=== PATIENT | male | born 1985 | race Caucasian/White ===

== ENCOUNTER 2020-01-02 02:03 | Day surgery (SDC) | payer OTHER, SELFPAY ==
[2019-12-31 15:15] VITALS: BMI 29.0
[2020-01-02 10:54] VITALS: BP 135/90; PULSE 93; RESP 16; TEMP 36.5; O2SAT 98; BMI 27.2
[2020-01-02] MEDS: LACTATED RINGERS 1,000 ML 150 ML IV CONT (11:11)
--- NOTE | 2020-01-02 11:25 | WPDANESEPPF ---
Anes - Initial Pre Proc Eval Procedure: Operation Date: 01/02/20 12:00 Proposed Procedures p Colonoscopy - Familia Koroma MD Date/Time: 01/02/20 11:25 Surgeon: Familia Koroma MD Pre Op Diagnosis: Ulcerative Colitis Patient Data Age: 34 Gender: M Height: 6 ft 1 in Weight: 93.6 kg Last Vital Signs Temp 97.7 F 01/02/20 10:54 Pulse 93 01/02/20 10:54 Resp 16 01/02/20 10:54 BP 135/90 01/02/20 10:54 Pulse Ox 98 01/02/20 10:54 Allergies Allergy/AdvReac Type Severity Reaction Status Date / Time No Known Allergies Allergy Verified 01/02/20 10:53 Home Medications Medication Instructions Recorded Confirmed Type No Home Medications 12/31/19 12/31/19 History Patient hx anesthesia problems: none Family hx anesthesia problems: none PMFSH Past Medical History Medical History (Updated 01/02/20 @ 11:25 by Alberto Burt MD) Asthma Ulcerative colitis Social History Social History (Updated 01/02/20 @ 11:29 by Alberto Burt MD) Smoking packs per day: 1.5 Smoking cigarettes per day: 30.0 Years smoked: 21 Smoking pack-years: 31.50 Smoking status: Current every day smoker Alcohol intake: current Anes - Eval Final PreProcedure Day of Procedure 01/02/20 11:25 Patient weight: normal Heart: regular rate and rhythm Lungs: clear to auscultation Airway: Mallampati scale class II Neurological: alert and oriented Last oral intake: >/= 8 hours ASA classification: II Emergent: no Anesthetic plan: proceed Anesthesia type and monitoring: general GIVS and standard monitoring Informed Consent: The patient's anesthetic plan and its attendant risks and benefits were discussed with the patient/family/POA. Questions were solicited and answers provided to the satisfaction of the patient/family/POA.
--- NOTE | 2020-01-02 11:58 | P.HP_ITS ---
History of Present Illness History of Present Illness Consent: Risks, benefits, and alternatives have been discussed and questions answered. Patient agrees to proceed with procedure. Chief complaint: Ulcerative Colitis Narrative: Parth Mccartney is a 34 year old male With known ulcerative colitis. He had not taken medication for at least 6 months and is now having cramping diarrhea and abdominal pain. [facility] Past Medical History Medical History Asthma Ulcerative colitis Social History Social History Smoking packs per day: 1.5 Smoking cigarettes per day: 30.0 Years smoked: 21 Smoking pack-years: 31.50 Smoking status: Current every day smoker Alcohol intake: current Meds Home Medications and Allergies Home Medications Medication Instructions Recorded Confirmed Type No Home Medications 12/31/19 12/31/19 History Allergies Allergy/AdvReac Type Severity Reaction Status Date / Time No Known Allergies Allergy Verified 01/02/20 10:53 Vital Signs Vital Signs - 24 hr 01/02/20 10:54 Temperature 36.5 C Pulse Rate 93 Respiratory Rate 16 Blood Pressure 135/90 Pulse Oximetry 98 Exam Resp: Auscultation: clear to auscultation bilaterally Cardio: Rate: regular rate Rhythm: regular rhythm GI: GI Palp: Yes Soft to palpation and No Tenderness to palpation present (GI) Assessment and Plan Assessment and plan (1) Ulcerative colitis: Code(s): K51.90 - Ulcerative colitis, unspecified, without complications Status: Acute Assessment and Plan: Colonoscopy with possible biopsy or polypectomy or cautery or injection of substances.
[2020-01-02 12:14] VITALS: BP 104/70; PULSE 82; RESP 20; O2SAT 94
[2020-01-02 12:24] VITALS: BP 109/71; PULSE 83; RESP 20; O2SAT 94
[2020-01-02 12:34] VITALS: BP 129/74; PULSE 81; RESP 18; O2SAT 100
== END 2020-01-02 12:49 | disposition home or self-care (01) ==
PROVIDERS: PCP Nurse Practitioner Family; Visit Provider Internal Medicine Gastroenterology
PROC: 0DJD8ZZ Inspection of Lower Intestinal Tract, Via Natural or Artificial Opening Endoscopic (ICD-10-PCS; CPT 45378; principal; 2020-01-02 12:00)
DX: K51.00 Ulcerative (chronic) pancolitis without complications (principal); J45.909 Unspecified asthma, uncomplicated; F17.210 Nicotine dependence, cigarettes, uncomplicated
CPT/HCPCS: 45380; 88305; J2704; J7120

== ENCOUNTER 2021-10-27 12:02 | Outpatient (CLI) | payer OTHER, SELFPAY ==
[2021-10-27 12:40] LABS: Hematocrit 39.1 % (42.0-52.0); Hemoglobin 12.1 g/dL (14.0-18.0); Mean Corpuscular HGB Conc 30.9 g/dl (32-36); Mean Corpuscular Volume 96.8 fl (80-100); Mean Platelet Volume 8.9 fl (7.4-10.4); Platelet Count Result 554 k/mm3 (150-375); Red Blood Count 4.04 M/mm3 (4.6-6.20); Red Cell Distribution Width 13.9 % (11.5-14.5); White Blood Count 7.6 K/mm3 (4.5-10.0)
[2021-10-27 12:58] LABS: Alanine Aminotransferase 13 U/L (4-50); Albumin Level 4.3 g/dL (3.5-5.1); Alkaline Phosphatase 131 U/L (38-126); Anion Gap 9 mmol/L (8-16); Aspartate Amino Transferase 18 U/L (17-59); Bilirubin,Total 0.3 mg/dL (0.2-1.3); Blood Urea Nitrogen 12 mg/dL (9-20); CRP 3.2 mg/dL (<1.0); Carbon Dioxide 30 mmol/L (22-30); Chloride 103 mmol/L (98-107); Estimated Glomerular Filt Rate > 60; Glucose 90 mg/dL (65-110); Potassium 4.5 mmol/L (3.4-5.0); Sodium 142 mmol/L (137-145)
[2021-10-27 15:56] LABS: Erythrocyte Sedimentation Rate 51 mm/hr (0-20)
[2021-10-28 01:30] LABS: Hepatitis B Surface Antigen Negative (Negative)
[2021-10-28 02:00] LABS: Hepatitis B Surface Anti Res Positive
[2021-10-31 12:56] LABS: NIL 0.02 IU/mL; Quantiferon TB Plus, 1T NEGATIVE (NEGATIVE)
[2021-10-31 19:41] LABS: Hepatitis B Core Ab Total Nonreactive (Nonreactive)
[2021-11-03 14:36] LABS: Hepatitis C RNA, Quant PCR <15 IU/mL
[2021-11-04 18:27] LABS: HIV 1 RNA PCR <1.30 Log cps/mL; HIV 1 RNA PCR <20 Copies/mL
== END 2021-10-27 12:03 | disposition home or self-care (01) ==
PROVIDERS: PCP Nurse Practitioner Family; Visit Provider Nurse Practitioner Family
DX: K51.90 Ulcerative colitis, unspecified, without complications (principal)
CPT/HCPCS: 36415; 80053; 85027; 85652; 86140; 86480; 86704; 86706; 87340; 87522; 87536

== ENCOUNTER 2021-11-09 01:09 | Day surgery (SDC) | payer OTHER, SELFPAY ==
[2021-11-01 11:07] VITALS: BMI 27.8
--- NOTE | 2021-11-09 06:53 | PM.HPGS ---
History of Present Illness History of Present Illness Consent: Risks, benefits, and alternatives have been discussed and questions answered. Patient agrees to proceed with procedure. Chief complaint: ulcerative colitis Narrative: Michael Mccartney is a 36 year old male With history of ulcerative colitis since 2013. At the time of his last examination 1 year ago he was found have severe diffuse colitis throughout the colon. Biopsies confirmed that but fortunately there was no dysplasia. He has stated that he has had a difficult time remembering to take all of his medication, mesalamine 3 capsules 3 times a day. In the past he had been on Humira. Review of Systems Review of Systems: All systems reviewed & are unremarkable except as noted in HPI and below PMFSH Past Medical History Medical History Asthma Ulcerative colitis Social History Social History Smoking packs per day: 1 Smoking cigarettes per day: 20.0 Years smoked: 20 Smoking pack-years: 20.00 Smoking status: Former smoker Tobacco type: cigarettes Alcohol intake: current Alcohol use details: social Substance use: never Last use: 07/2021 Living arrangements: with family Spiritual care concerns: No Meds Home Medications and Allergies Home Medications Medication Instructions Recorded Confirmed Type balsalazide 750 mg capsule 2,250 mg PO TID #270 cap 10/27/21 11/01/21 Rx Allergies Allergy/AdvReac Type Severity Reaction Status Date / Time No Known Allergies Allergy Verified 11/01/21 11:05 Exam Resp: Auscultation: clear to auscultation bilaterally Cardio: Rate: regular rate Rhythm: regular rhythm GI: GI Palp: Yes Soft to palpation and No Tenderness to palpation present (GI) Assessment and Plan Assessment and plan (1) Ulcerative colitis: Code(s): K51.90 - Ulcerative colitis, unspecified, without complications Status: Acute Assessment and Plan: Colonoscopy with possible biopsy or polypectomy or cautery or injection of substances.
--- NOTE | 2021-11-09 07:01 | WPDANESEPPF ---
Anes - Initial Pre Proc Eval Procedure: Operation Date: 11/09/21 09:30 Proposed Procedures p Colonoscopy - Familia Koroma MD Date/Time: 11/09/21 07:01 Surgeon: Familia Koroma MD Pre Op Diagnosis: ulcerative colitis Patient Data Age: 36 Gender: M Height: 1.83 m Weight: 93 kg Allergies Allergy/AdvReac Type Severity Reaction Status Date / Time No Known Allergies Allergy Verified 11/09/21 08:51 Home Medications Medication Instructions Recorded Confirmed Type balsalazide 750 mg capsule 2,250 mg PO TID #270 cap 10/27/21 11/01/21 Rx Patient hx anesthesia problems: none Family hx anesthesia problems: none Results Review: All pre-operative results and documents have been reviewed as part of the pre-operative evaluation. [facility] Past Medical History Medical History Asthma Ulcerative colitis Social History Social History Smoking packs per day: 1 Smoking cigarettes per day: 20.0 Years smoked: 20 Smoking pack-years: 20.00 Smoking status: Former smoker Tobacco type: cigarettes Alcohol intake: current Alcohol use details: social Substance use: never Last use: 07/2021 Living arrangements: with family Spiritual care concerns: No Anes - Eval Final PreProcedure Day of Procedure 11/09/21 07:01 Patient weight: overweight Heart: regular rate and rhythm Lungs: clear to auscultation and normal air movement Airway: Mallampati scale class II Neurological: alert and oriented Last oral intake: >/= 8 hours ASA classification: III Emergent: no Anesthetic plan: proceed Anesthesia type and monitoring: general GIVS and standard monitoring Results Review: All pre-operative results and documents have been reviewed as part of the pre-operative evaluation. Informed Consent: The patient's anesthetic plan and its attendant risks and benefits were discussed with the patient/family/POA. Questions were solicited and answers provided to the satisfaction of the patient/family/POA.
[2021-11-09 08:52] VITALS: BP 108/78; PULSE 74; RESP 18; TEMP 36.4; O2SAT 100; BMI 27.1
[2021-11-09] MEDS: LACTATED RINGERS 1,000 ML 150 ML IV CONT (09:04)
[2021-11-09 10:26] VITALS: BP 99/67; PULSE 74; RESP 18; O2SAT 97
[2021-11-09 10:36] VITALS: BP 104/76; PULSE 62; RESP 21; O2SAT 100
[2021-11-09 10:46] VITALS: BP 121/81; PULSE 62; RESP 20; O2SAT 100
== END 2021-11-09 10:52 | disposition home or self-care (01) ==
PROVIDERS: PCP Nurse Practitioner Family; Visit Provider Internal Medicine Gastroenterology
PROC: 0DJD8ZZ Inspection of Lower Intestinal Tract, Via Natural or Artificial Opening Endoscopic (ICD-10-PCS; CPT 45378; principal; 2021-11-09 09:30)
DX: K51.00 Ulcerative (chronic) pancolitis without complications (principal); K51.50 Left sided colitis without complications; K51.90 Ulcerative colitis, unspecified, without complications; K62.89 Other specified diseases of anus and rectum; Z87.891 Personal history of nicotine dependence
CPT/HCPCS: 45380; 88305; J2001; J2704; J7120

== ENCOUNTER 2022-04-27 01:00 | Day surgery (SDC) | payer OTHER, SELFPAY ==
[2022-04-19 10:28] VITALS: BMI 31.2
--- NOTE | 2022-04-26 14:08 | PM.HPGS ---
History of Present Illness History of Present Illness Consent: Risks, benefits, and alternatives have been discussed and questions answered. Patient agrees to proceed with procedure. Chief complaint: ulcerative colitis Narrative: Michael Mccartney is a 36 year old male Who was found to have severe diffuse ulcerative colitis several months ago with biopsies being indefinite for dysplasia. He has not been able to get on a biologic product as was turned down by his insurance company. He is currently taking balsalazide and has had a few courses of steroids, currently finishing a taper of prednisone. Review of Systems Review of Systems: All systems reviewed & are unremarkable except as noted in HPI and below PMFSH Past Medical History Medical History Asthma Ulcerative colitis Social History Social History Smoking packs per day: 1 Smoking cigarettes per day: 20.0 Years smoked: 20 Smoking pack-years: 20.00 Smoking status: Current every day smoker Tobacco type: cigarettes Alcohol intake: current Alcohol use details: occasional use Substance use: never Substance use type: does not use Last use: 07/2021 Living arrangements: with friend(s) Spiritual care concerns: No Meds Home Medications and Allergies Home Medications Medication Instructions Recorded Confirmed Type balsalazide 750 mg capsule See Rx Instructions .Route 11/14/21 04/19/22 Rx .COMPLEX #270 caps prednisone 10 mg tablet 30 mg PO DAILY #90 tabs 04/17/22 04/19/22 Rx ergocalciferol (vitamin D2) 1,250 1 cap PO DAILY 04/19/22 04/19/22 History mcg (50,000 unit) capsule Allergies Allergy/AdvReac Type Severity Reaction Status Date / Time No Known Allergies Allergy Verified 04/27/22 12:04 Exam Const: General: alert Orientation/consciousness: patient oriented x3 Resp: Auscultation: clear to auscultation bilaterally Cardio: Rate: regular rate Rhythm: regular rhythm GI: GI Palp: Yes Soft to palpation and No Tenderness to palpation present (GI) Neuro: General: patient oriented x3 Assessment and Plan Assessment and plan (1) Ulcerative colitis: Code(s): K51.90 - Ulcerative colitis, unspecified, without complications Status: Acute Assessment and Plan: Colonoscopy with possible biopsy or polypectomy or cautery or injection of substances.
[2022-04-27 12:05] VITALS: BP 126/86; PULSE 102; RESP 18; TEMP 36.8; O2SAT 98
[2022-04-27] MEDS: LACTATED RINGERS 1,000 ML 150 ML IV CONT (12:06)
--- NOTE | 2022-04-27 12:13 | P.PNAN_ITS ---
Anes - Initial Pre Proc Eval Procedure: Operation Date: 04/27/22 12:45 Proposed Procedures p Colonoscopy - Familia Koroma MD Date/Time: 04/27/22 12:13 Surgeon: Familia Koroma MD Pre Op Diagnosis: ulcerative colitis Patient Data Age: 36 Gender: M Height: 1.83 m Weight: 93.9 kg Last Vital Signs Temp 98.2 F 04/27/22 12:05 Pulse 102 H 04/27/22 12:05 Resp 18 04/27/22 12:05 BP 126/86 04/27/22 12:05 Pulse Ox 98 04/27/22 12:05 O2 Del Method Room Air 04/27/22 12:05 Allergies Allergy/AdvReac Type Severity Reaction Status Date / Time No Known Allergies Allergy Verified 04/27/22 12:04 Home Medications Medication Instructions Recorded Confirmed Type balsalazide 750 mg capsule See Rx Instructions .Route 11/14/21 04/19/22 Rx .COMPLEX #270 caps prednisone 10 mg tablet 30 mg PO DAILY #90 tabs 04/17/22 04/19/22 Rx ergocalciferol (vitamin D2) 1,250 1 cap PO DAILY 04/19/22 04/19/22 History mcg (50,000 unit) capsule Patient hx anesthesia problems: none Family hx anesthesia problems: none Results Review: All pre-operative results and documents have been reviewed as part of the pre- operative evaluation. [facility] Past Medical History Medical History Asthma Ulcerative colitis Social History Social History Smoking packs per day: 1 Smoking cigarettes per day: 20.0 Years smoked: 20 Smoking pack-years: 20.00 Smoking status: Current every day smoker Tobacco type: cigarettes Alcohol intake: current Alcohol use details: occasional use Substance use: never Substance use type: does not use Last use: 07/2021 Living arrangements: with friend(s) Spiritual care concerns: No Anes - Eval Final PreProcedure Day of Procedure 04/27/22 12:13 Patient weight: overweight Heart: regular rate and rhythm Lungs: clear to auscultation Airway: Mallampati scale class II Neurological: alert and oriented Last oral intake: >/= 8 hours ASA classification: II Emergent: no Anesthetic plan: proceed Anesthesia type and monitoring: general GIVS and standard monitoring Results Review: All pre-operative results and documents have been reviewed as part of the pre- operative evaluation. Informed Consent: The patient's anesthetic plan and its attendant risks and benefits were di scussed with the patient/family/POA. Questions were solicited and answers provided to the satisfaction of the patient/family/POA.
[2022-04-27 12:39] VITALS: BP 106/64; PULSE 86; RESP 24; O2SAT 94
[2022-04-27 12:49] VITALS: BP 120/72; PULSE 88; RESP 26; O2SAT 98
[2022-04-27 12:59] VITALS: BP 119/76; PULSE 81; RESP 20; O2SAT 98
== END 2022-04-27 13:23 | disposition home or self-care (01) ==
PROVIDERS: PCP Nurse Practitioner Family; Visit Provider Internal Medicine Gastroenterology
PROC: 0DJD8ZZ Inspection of Lower Intestinal Tract, Via Natural or Artificial Opening Endoscopic (ICD-10-PCS; CPT 45378; principal; 2022-04-27 12:45)
DX: Z09 Encounter for follow-up examination after completed treatment for conditions other than malignant neoplasm (principal); K51.00 Ulcerative (chronic) pancolitis without complications; J45.909 Unspecified asthma, uncomplicated; F17.210 Nicotine dependence, cigarettes, uncomplicated; Z79.52 Long term (current) use of systemic steroids
CPT/HCPCS: 45380; 88305; J2704; J7120

== ENCOUNTER 2022-05-03 11:56 | Outpatient (CLI) | payer OTHER, SELFPAY ==
[2022-05-03 13:48] LABS: Toxigenic C. Diff NEGATIVE (NEGATIVE)
[2022-05-10 18:43] LABS: Calprotectin, Stool 7320 mcg/g
== END 2022-05-03 11:57 | disposition home or self-care (01) ==
PROVIDERS: PCP Nurse Practitioner Family; Visit Provider Nurse Practitioner Family
DX: K51.90 Ulcerative colitis, unspecified, without complications (principal)
CPT/HCPCS: 83993; 87045; 87177; 87209; 87427; 87493

== ENCOUNTER 2022-05-10 11:35 | Outpatient (CLI) | payer OTHER, SELFPAY ==
--- NOTE | 2022-05-10 12:17 | ECG_ITS ---
Measurements Intervals [place] Rate: 75 P: 59 SD: 165 QRS: 42 QRSD: 101 T: 31 QT: 376 QTc: 422 Interpretive Statements SINUS RHYTHM BASELINE WANDER- I, II, AVR NORMAL ECG Electronically Signed On 05-10-2022 22:33:36 CDT by Mahad Montiel D.O.
[2022-05-10 12:22] LABS: Basophils Percent Auto 0.2 % (0.2-1.2); Eosinophils Percent Auto 0.4 % (0-4.4); Hematocrit 39.2 % (42.0-52.0); Hemoglobin 12.7 g/dL (14.0-18.0); Immature Granulocyte Absolute 0.04 K/mm3 (0.00-0.031); Immature Granulocyte Percent A 0.4 % (0-0.5); Lymphocytes Absolute Auto 1.77 K/mm3 (0.9-3.2); Lymphocytes Percent Auto 18.8 % (18.3-44.2); Mean Corpuscular HGB Conc 32.4 g/dl (32-36); Mean Corpuscular Hemoglobin 29.6 pg (26-34); Mean Corpuscular Volume 91.4 fl (80-100); Mean Platelet Volume 9.6 fl (7.4-10.4); Monocytes Absolute Auto 0.8 K/mm3 (0.1-0.6); Monocytes Percent Auto 8.1 % (2.6-8.5); Neutrophils Absolute Auto 6.8 K/mm3 (1.3-6.7); Neutrophils Percent Auto 72.1 % (45.5-73.1); Platelet Count Result 452 k/mm3 (150-375); Red Blood Count 4.29 M/mm3 (4.6-6.20); White Blood Count 9.4 K/mm3 (4.5-10.0)
[2022-05-10 12:33] LABS: Alanine Aminotransferase 13 U/L (6-50); Albumin Level 3.9 g/dL (3.5-5.1); Alkaline Phosphatase 61 U/L (38-126); Aspartate Amino Transferase 15 U/L (17-59); Bilirubin,Total 0.4 mg/dL (0.2-1.3)
== END 2022-05-10 11:36 | disposition home or self-care (01) ==
LOC: ANHLAB 11:38
PROVIDERS: PCP Nurse Practitioner Family; Visit Provider Internal Medicine Gastroenterology
DX: K51.90 Ulcerative colitis, unspecified, without complications (principal)
CPT/HCPCS: 36415; 80076; 85025; 93005

== ENCOUNTER 2022-09-07 12:08 | Outpatient (CLI) | payer OTHER, SELFPAY ==
[2022-09-07 11:19] LABS: Hematocrit 38.5 % (42.0-52.0); Hemoglobin 11.6 g/dL (14.0-18.0); Mean Corpuscular HGB Conc 30.1 g/dl (32-36); Mean Corpuscular Hemoglobin 24.4 pg (26-34); Mean Corpuscular Volume 81.1 fl (80-100); Mean Platelet Volume 10.2 fl (7.4-10.4); Platelet Count Result 444 k/mm3 (150-375); Red Blood Count 4.75 M/mm3 (4.6-6.20); Red Cell Distribution Width 14.9 % (11.5-14.5); White Blood Count 6.1 K/mm3 (4.5-10.0)
[2022-09-07 11:36] LABS: Iron 25 ug/dL (49-181)
[2022-09-07 11:37] LABS: Alanine Aminotransferase 13 U/L (6-50); Albumin Level 4.2 g/dL (3.5-5.1); Alkaline Phosphatase 87 U/L (38-126); Anion Gap 10 mmol/L (8-16); Aspartate Amino Transferase 21 U/L (17-59); Bilirubin,Total 0.4 mg/dL (0.2-1.3); Blood Urea Nitrogen 11 mg/dL (9-20); CRP 1.5 mg/dL (<1.0); Calcium 8.8 mg/dL (8.4-10.2); Carbon Dioxide 30 mmol/L (22-30); Chloride 103 mmol/L (98-107); Estimated Glomerular Filt Rate > 60; Glucose 130 mg/dL (65-110); Potassium 3.9 mmol/L (3.4-5.0); Sodium 143 mmol/L (137-145)
[2022-09-07 11:46] LABS: Percent Iron Saturation 6 % (20-50)
[2022-09-07 11:58] LABS: Erythrocyte Sedimentation Rate 14 mm/hr (0-20)
[2022-09-07 12:09] LABS: Ferritin 5.62 ng/mL (17.9-464)
[2022-09-07 12:37] LABS: Folic Acid 7.7 ng/mL (2.76->20)
[2022-09-15 16:19] LABS: Calprotectin, Stool 981 mcg/g
== END 2022-09-07 12:09 | disposition home or self-care (01) ==
PROVIDERS: PCP Nurse Practitioner Family; Visit Provider Nurse Practitioner Family
DX: K51.90 Ulcerative colitis, unspecified, without complications (principal)
CPT/HCPCS: 36415; 80053; 82607; 82728; 82746; 83540; 83550; 83993; 85027; 85652; 86140

== ENCOUNTER 2022-12-08 10:17 | Outpatient (CLI) | payer OTHER, SELFPAY ==
[2022-12-08 11:24] LABS: Hematocrit 44.3 % (42.0-52.0); Hemoglobin 14.1 g/dL (14.0-18.0); Mean Corpuscular HGB Conc 31.8 g/dl (32-36); Mean Corpuscular Hemoglobin 27.8 pg (26-34); Mean Corpuscular Volume 87.2 fl (80-100); Mean Platelet Volume 10.5 fl (7.4-10.4); Platelet Count Result 422 k/mm3 (150-375); Red Blood Count 5.08 M/mm3 (4.6-6.20); Red Cell Distribution Width 17.1 % (11.5-14.5); White Blood Count 10.2 K/mm3 (4.5-10.0)
[2022-12-08 11:40] LABS: Iron 87 ug/dL (49-181)
[2022-12-08 11:46] LABS: Alanine Aminotransferase 13 U/L (6-50); Albumin Level 4.4 g/dL (3.5-5.1); Alkaline Phosphatase 83 U/L (38-126); Anion Gap 9 mmol/L (8-16); Aspartate Amino Transferase 21 U/L (17-59); Bilirubin,Total 0.4 mg/dL (0.2-1.3); Blood Urea Nitrogen 10 mg/dL (9-20); CRP 1.8 mg/dL (<1.0); Calcium 8.9 mg/dL (8.4-10.2); Carbon Dioxide 29 mmol/L (22-30); Chloride 104 mmol/L (98-107); Estimated Glomerular Filt Rate > 60; Glucose 104 mg/dL (65-110); Potassium 4.1 mmol/L (3.4-5.0); Sodium 142 mmol/L (137-145)
[2022-12-08 11:52] LABS: Percent Iron Saturation 21 % (20-50)
== END 2022-12-08 10:18 | disposition home or self-care (01) ==
LOC: ANHLAB 10:19
PROVIDERS: PCP Nurse Practitioner Family; Visit Provider Nurse Practitioner Family
DX: K51.90 Ulcerative colitis, unspecified, without complications (principal)
CPT/HCPCS: 36415; 80053; 82728; 83540; 83550; 85027; 86140

== ENCOUNTER 2022-12-28 14:36 | Outpatient (CLI) | payer OTHER, SELFPAY ==
[2022-12-28 14:11] LABS: CRP 1.2 mg/dL (<1.0)
[2022-12-28 14:32] LABS: Erythrocyte Sedimentation Rate 4 mm/hr (0-20)
[2022-12-28 16:00] LABS: Toxigenic C. Diff NEGATIVE (NEGATIVE)
[2023-01-08 01:17] LABS: Calprotectin, Stool 6230 mcg/g
== END 2022-12-28 14:37 | disposition home or self-care (01) ==
LOC: ANHLAB 14:36
PROVIDERS: PCP Nurse Practitioner Family; Visit Provider Nurse Practitioner Family
DX: K51.90 Ulcerative colitis, unspecified, without complications (principal)
CPT/HCPCS: 36415; 83993; 85652; 86140; 87493

== ENCOUNTER 2023-01-12 10:37 | Outpatient (CLI) | payer OTHER, SELFPAY ==
[2023-01-12 11:38] LABS: Iron 103 ug/dL (49-181)
[2023-01-12 11:49] LABS: Percent Iron Saturation 27 % (20-50)
[2023-01-12 12:03] LABS: Hepatitis B Surface Antigen Negative (Negative)
[2023-01-12 12:14] LABS: Ferritin 8.22 ng/mL (17.9-464)
[2023-01-12 12:25] LABS: Hepatitis B Surface Anti Res Positive
[2023-01-15 16:21] LABS: Hepatitis C RNA, Quant PCR <15 IU/mL
[2023-01-16 13:28] LABS: NIL 0.01 IU/mL; Quantiferon TB Plus, 1T NEGATIVE (NEGATIVE)
[2023-01-16 17:21] LABS: Hepatitis B Core Ab Total Nonreactive (Nonreactive)
== END 2023-01-12 10:38 | disposition home or self-care (01) ==
PROVIDERS: Nurse Practitioner; PCP Nurse Practitioner Family; Visit Provider Nurse Practitioner Family
DX: K51.90 Ulcerative colitis, unspecified, without complications (principal); Z11.59 Encounter for screening for other viral diseases; Z79.899 Other long term (current) drug therapy; E61.1 Iron deficiency
CPT/HCPCS: 36415; 82728; 83540; 83550; 86480; 86704; 86706; 87340; 87522

== ENCOUNTER 2023-04-13 13:34 | Outpatient (CLI) | payer OTHER, SELFPAY ==
[2023-04-13 13:52] LABS: Hematocrit 45.8 % (42.0-52.0); Hemoglobin 15.1 g/dL (14.0-18.0); Mean Corpuscular Volume 88.1 fl (80-100); Platelet Count Result 293 k/mm3 (150-375); Red Cell Distribution Width 13.7 % (11.5-14.5); White Blood Count 7.5 K/mm3 (4.5-10.0)
[2023-04-13 14:09] LABS: Alanine Aminotransferase 21 U/L (6-50); Albumin Level 4.3 g/dL (3.5-5.1); Alkaline Phosphatase 90 U/L (38-126); Anion Gap 6 mmol/L (8-16); Aspartate Amino Transferase 29 U/L (17-59); Bilirubin,Total 0.5 mg/dL (0.2-1.3); Blood Urea Nitrogen 14 mg/dL (9-20); CRP < 0.5 mg/dL (<1.0); Calcium 8.4 mg/dL (8.4-10.2); Carbon Dioxide 28 mmol/L (22-30); Chloride 107 mmol/L (98-107); Estimated Glomerular Filt Rate > 60; Glucose 81 mg/dL (65-110); Potassium 4.1 mmol/L (3.4-5.0); Sodium 141 mmol/L (137-145)
[2023-04-13 14:20] LABS: Iron 103 ug/dL (49-181)
[2023-04-13 14:23] LABS: Erythrocyte Sedimentation Rate 3 mm/hr (0-20)
[2023-04-13 14:29] LABS: Percent Iron Saturation 23 % (20-50)
[2023-04-13 14:55] LABS: Ferritin 8.88 ng/mL (17.9-464)
== END 2023-04-13 13:35 | disposition home or self-care (01) ==
PROVIDERS: PCP Nurse Practitioner Family; Visit Provider Nurse Practitioner Family
DX: E61.1 Iron deficiency (principal); K51.90 Ulcerative colitis, unspecified, without complications
CPT/HCPCS: 36415; 80053; 82728; 83540; 83550; 85027; 85652; 86140

== ENCOUNTER 2023-04-16 11:01 | Outpatient (CLI) | payer OTHER, SELFPAY ==
[2023-04-22 19:12] LABS: Calprotectin, Stool 99 mcg/g
== END 2023-04-16 11:02 | disposition home or self-care (01) ==
LOC: ANHLAB 11:02
PROVIDERS: PCP Nurse Practitioner Family; Visit Provider Nurse Practitioner Family
DX: K51.90 Ulcerative colitis, unspecified, without complications (principal); E61.1 Iron deficiency
CPT/HCPCS: 83993

== ENCOUNTER 2023-10-29 10:44 | Outpatient (CLI) | payer OTHER, SELFPAY ==
[2023-10-29 12:00] LABS: Iron 166 ug/dL (49-181)
[2023-10-29 12:09] LABS: Percent Iron Saturation 38 % (20-50)
== END 2023-10-29 10:45 | disposition home or self-care (01) ==
LOC: ANHLAB 10:45
PROVIDERS: PCP Nurse Practitioner Family; Visit Provider Nurse Practitioner Family
DX: E61.1 Iron deficiency (principal)
CPT/HCPCS: 36415; 82728; 83540; 83550

== ENCOUNTER 2023-11-14 16:02 | Outpatient (CLI) | payer OTHER, SELFPAY ==
[2023-11-14 17:37] LABS: Toxigenic C. Diff NEGATIVE (NEGATIVE)
[2023-11-22 18:08] LABS: Calprotectin, Stool 3990 mcg/g
== END 2023-11-14 16:03 | disposition home or self-care (01) ==
LOC: ANHLAB 16:03
PROVIDERS: PCP Nurse Practitioner Family; Visit Provider Nurse Practitioner Family
DX: R19.7 Diarrhea, unspecified (principal)
CPT/HCPCS: 83993; 87493

== ENCOUNTER 2024-04-28 14:07 | Outpatient (CLI) | payer OTHER, SELFPAY ==
[2024-04-28 14:39] LABS: Hematocrit 42.1 % (42.0-52.0); Hemoglobin 13.5 g/dL (14.0-18.0); Mean Corpuscular HGB Conc 32.1 g/dl (32-36); Mean Corpuscular Hemoglobin 26.6 pg (26-34); Mean Platelet Volume 11.4 fl (7.4-10.4); Platelet Count Result 328 k/mm3 (150-375); Red Blood Count 5.07 M/mm3 (4.6-6.20); Red Cell Distribution Width 14.8 % (11.5-14.5); White Blood Count 8.2 K/mm3 (4.5-10.0)
[2024-04-28 14:46] LABS: Alanine Aminotransferase 40 U/L (6-50); Albumin Level 4.6 g/dL (3.5-5.1); Alkaline Phosphatase 104 U/L (38-126); Anion Gap 11 mmol/L (4-12); Aspartate Amino Transferase 49 U/L (17-59); Bilirubin,Total 0.8 mg/dL (0.2-1.3); Blood Urea Nitrogen 16 mg/dL (9-20); CRP 1.3 mg/dL (<1.0); Carbon Dioxide 24 mmol/L (22-30); Chloride 105 mmol/L (98-107); Estimated Glomerular Filt Rate > 60; Glucose 86 mg/dL (65-110); Potassium 4.1 mmol/L (3.4-5.0); Sodium 140 mmol/L (137-145)
[2024-04-28 16:42] LABS: Erythrocyte Sedimentation Rate 6 mm/hr (0-20)
== END 2024-04-28 14:08 | disposition home or self-care (01) ==
LOC: ANHLAB 14:09
PROVIDERS: PCP Internal Medicine; Visit Provider Nurse Practitioner Family
DX: K51.90 Ulcerative colitis, unspecified, without complications (principal)
CPT/HCPCS: 36415; 80053; 85027; 85652; 86140

== ENCOUNTER 2024-05-06 14:36 | Outpatient (CLI) | payer OTHER, SELFPAY ==
[2024-05-11 23:34] LABS: Calprotectin, Stool 1150 mcg/g
== END 2024-05-06 14:37 | disposition home or self-care (01) ==
PROVIDERS: PCP Internal Medicine; Visit Provider Nurse Practitioner Family
DX: K51.90 Ulcerative colitis, unspecified, without complications (principal); R79.82 Elevated C-reactive protein (CRP)
CPT/HCPCS: 83993

== ENCOUNTER 2024-09-10 09:39 | Outpatient (CLI) | payer OTHER, SELFPAY ==
[2024-09-10 10:11] LABS: Cholesterol 173 mg/dL (0-200); HDL Direct 57 mg/dL; Triglycerides 109 mg/dL (<150)
[2024-09-10 10:22] LABS: LDL Cholesterol Direct 81 mg/dL
== END 2024-09-10 09:40 | disposition home or self-care (01) ==
PROVIDERS: PCP Internal Medicine; Visit Provider Nurse Practitioner Family
DX: K51.90 Ulcerative colitis, unspecified, without complications (principal)
CPT/HCPCS: 36415; 80061

== ENCOUNTER 2024-12-04 12:26 | Outpatient (CLI) | payer OTHER, SELFPAY ==
--- OUTSIDE RECORDS SUMMARY | 2024-12-04 12:28 | XMS_ITS | Patient Health Summary ---
Author Organization [facility] Address [address] [place] [address] Care Team Providers Care Framing Mill Supervisor Name Role Phone None, Physician Primary Care Provider Unavailabl e Note from [facility],non-owned Affiliates and Associated Physician Practices is amultiple site organization consisting of ambulatory clinics and hospital sitesin [place], [place], [place] and [place]. This disclosure is being madepursuant to the Care Everywhere program and may not contain all information available regarding this patient. Last updated 18.[facility] Allergies No known active allergies Medications * Be aware that medications may not be up to date on this document. Alwaysverify current medications with the patient. * balsalazide (Colazal) 750 MG capsule(Started 06/02/2023) TAKE 3 CAPSULES BY MOUTH 3 TIMES DAILY * buPROPion XL 24hr (Wellbutrin-XL) 300 MG tablet(Started 05/27/2023) Take 1 (one) tablet by mouth every morning * escitalopram (Lexapro) 10 MG tablet Take 1 (one) tablet by mouth once daily * omeprazole (PriLOSEC) 40 MG capsule Take 1 (one) capsule by mouth once daily * inFLIXimab-abda (Renflexis) injection(Started 03/09/2023) Renflexis 100 mg recon soln * predniSONE (Deltasone) 5 MG tablet Take 1 (one) tablet by mouth once * albuterol HFA (Proventil; Ventolin; Proair) 108 (90 Base) MCG/ACT inhaler INHALE 1 PUFF BY MOUTH EVERY 6 HOURS NEEDED FOR SHORTNESS OF BREATH OR WHEEZING Active Problems Problem Noted Date Diagnosed Date 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 Social History Tobacco Use Types Packs/Day Years Used Date Smoking Tobacco: Every Day Cigarettes Tobacco Cessation:Ready to Q uit: Yes; Counseling Given: Yes Alcohol Use Standard Drinks/Week Comments Never 0 (1 standard drink = 0.6 oz pur e alcohol) Sex and Gender Information Value Date Recorded Sex Assigned at Not on file Gender Identity Not on file Sexual Orientation Not on file Last Filed Vital Signs Vital Sign Reading Time Taken Comments Blood Pressure 128/85 06/05/2024 8:23 AM CDT Pulse 88 06/05/2024 8:23 AM CDT Temperature 36.8 C (98.2 F) 06/05/2024 8:23 AM CDT Respiratory Rate - - Oxygen Saturation 96% 06/05/2024 8:23 AM CDT Inhaled Oxygen Concentration - - Weight 108.2 kg (238 lb 9.6 oz) 06/05/2024 8:23 AM CDT Height 182.9 cm (6') 06/05/2024 8:23 AM CDT Body Mass Index 32.36 06/05/2024 8:23 AM CDT Procedures * CT HEAD WO CONTRAST(Performed 06/05/2024) Performed for Colloid cyst of brain (HCC) Results * CT HEAD WO CONTRAST (06/05/2024 8:10 AM CDT) Anatomical Region Laterality Modality Head Computed Tomogra phy 06/05/2024 2:09 PM CDT Impressions 06/05/2024 2:12 PM CDT IMPRESSION: 1. A 4 mm hyperattenuating lesion at the roof of the third ventricle/the foramen of Gipson, consistent with a colloid cyst. > Interpreting Provider: Julia Garces MD on 06/05/2024 2:12 PM Narrative 06/05/2024 2:12 PM CDT PROCEDURE: CT HEAD WO CONTRAST, DATE/TIME OF EXAM: 06/05/2024 8:11 AM, LOCATION [facility] INDICATION: Q04.6: Colloid cyst of brain (HCC) ADDITIONAL CLINICAL INFORMATION: Ordering Provider Reason For Exam: follow up colloid cyst Technologist Note: Additional: TECHNIQUE: CT of the head was performed without contrast according to standard protocol. CONTRAST: COMPARISON: No prior study is available for comparison at the time of this dictation. FINDINGS: A 4 mm hyperattenuating lesion at the roof of the third ventricle/the foramen of Gipson, consistent with a colloid cyst. No acute intracranial hemorrhage or intra- or extra-axial fluid collections are identified. The ventricles are of normal size, shape, and morphology. The basal cisterns are patent. No mass effect or midline shift is seen. The aly-white matter differentiation is normal. Other than mild paranasal sinus disease, the visualized portions of the orbits, paranasal sinuses, and mastoids appear normal. No acute calvarial fracture is identified. Procedure Note Julia Garces MD - 06/05/2024 PROCEDURE: CT HEAD WO CONTRAST, DATE/TIME OF EXAM: 06/05/2024 8:11 AM, LOCATION [facility] INDICATION: Q04.6: Colloid cyst of brain (HCC) ADDITIONAL CLINICAL INFORMATION: Ordering Provider Reason For Exam: follow up colloid cyst Technologist Note: Additional: TECHNIQUE: CT of the head was performed without contrast according to standard protocol. CONTRAST: COMPARISON: No prior study is available for comparison at the time ofthis dictation. FINDINGS: A 4 mm hyperattenuating lesion at the roof of the third ventricle/the foramen of Gipson, consistent with a colloid cyst. No acute intracranial hemorrhage or intra- or extra-axial fluidcollections are identified. The ventricles are of normal size, shape, andmorphology. The basal cisterns are patent. No mass effect or midline shift is seen.The aly-white matter differentiation is normal. Other than mild paranasal sinus disease, the visualized portions of the orbits, paranasal sinuses, and mastoids appear normal. No acute calvarial fracture is identified. IMPRESSION: 1. A 4 mm hyperattenuating lesion at the roof of the third ventricle/the foramen of Gipson, consistent with a colloid cyst. > Interpreting Provider: Julia Garces MD on 06/05/2024 2:12 PM Muna Rosario SENIOR CYBER INTELLIGENCE ANALYST-SOLE PAINTER CT ORDERABLES Care Teams Framing Mill Supervisor Relationship Specialty Start Date End Date None, Physician [address] [place] [address] PCP - General 06/07/23
--- OUTSIDE RECORDS SUMMARY | 2024-12-04 12:28 | XMS_ITS | Clinical Summary ---
Author Organization [email or web address] Address [address] [place] [address] Care Team Providers Care Medical Records Analyst Name Role Phone None, Physician Primary Care Provider Unavailabl e Source Comments [email or web address],non-owned Affiliates and Associated Physician Practices is amultiple site organization consisting of ambulatory clinics and hospital sitesin [place], [place], [place] and [place]. This disclosure is being madepursuant to the Care Everywhere program and may not contain all information available regarding this patient. Last updated 18.[email or web address] Allergies No known active allergies Medications * Be aware that medications may not be up to date on this document. Alwaysverify current medications with the patient. Medication Sig Dispensed Refills Start Date End Date Status balsalazide (Colazal) 750 MG capsule TAKE 3 CAPSULES BY MOUTH 3 TIMES DAILY 06/02/2023 Active buPROPion XL 24hr (Wellbutrin-XL) 300 MG tablet Take 1 (one) tablet by mouth every morning 05/27/2023 Active escitalopram (Lexapro) 10 MG tablet Take 1 (one) tablet by mouth once daily Active omeprazole (PriLOSEC) 40 MG capsule Take 1 (one) capsule by mouth once daily Active inFLIXimab-abda (Renflexis) injection Renflexis 100 mg recon soln 03/09/2023 Active predniSONE (Deltasone) 5 MG tablet Take 1 (one) tablet by mouth once Active albuterol HFA (Proventil; Ventolin; Proair) 108 (90 Base) MCG/ACT inhaler INHALE 1 PUFF BY MOUTH EVERY 6 HOURS NEEDED FOR SHORTNESS OF BREATH OR WHEEZING Active Active Problems Problem Noted Date Diagnosed Date [...] Mass Index 32.36 06/05/2024 8:23 AM CDT Plan of Treatment Health Maintenance Due Date Last Done Comments HIV SCREENING 2001 HEPATITIS C SCREENING 08/14/2004 DTAP/TDAP/TD VACCINES (1 - Tdap) 2005 HEPATITIS B VACCINE (1 of 3 - 19+ 3-dose series) 2005 PNEUMOCOCCAL VACCINE (1 of 2 - PCV) 2005 COVID-19 VACCINE (1 - 2023-2 5 season) 2024 INFLUENZA VACCINE (#1) 2024 3, 09/21/2022 DEPRESSION SCREENING 10/22/2024 ZOSTER VACCINE (1 of 2) 2036 HIB VACCINE Aged Out No longer eligi ble based on patient's age to complete this topic HPV VACCINE Aged Out No longer eligi ble based on patient's age to complete this topic MENINGOCOCCAL (Group B) VACCINE Aged Out No longer eligible b ased on patient's age to complete this topic MENINGOCOCCAL VACCINE Aged Out No brittney tova eligible based on patient's age to complete this topic Care Teams Medical Records Analyst Relationship Specialty Start Date End Date None, Physician [address] [place] [address] PCP - General 06/07/23
--- OUTSIDE RECORDS SUMMARY | 2024-12-04 12:28 | XMS_ITS | Referral Summary ---
Author Organization [facility] Address [address] [place] [address] Care Team Providers Care Jewel Stringer Name Role Phone None, Physician Primary Care Provider Unavailabl e Source Comments [facility],non-owned Affiliates and Associated Physician Practices is amultiple site organization consisting of ambulatory clinics and hospital sitesin [place], [place], [place] and [place]. This disclosure is being madepursuant to the Care Everywhere program and may not contain all information available regarding this patient. Last updated 18.[facility] Allergies No known active allergies Medications * [...] 06/05/2024 8:23 AM CDT Plan of Treatment Not on file Care Teams Jewel Stringer Relationship Specialty Start Date End Date None, Physician [address] [place] [address] PCP - General 06/07/23
--- OUTSIDE RECORDS SUMMARY | 2024-12-04 12:29 | XMS_ITS | Data Portability ---
Author Organization [place] - [facility], Main Office Address [address] [place] [address] Care Team Providers Care Lathe Puller Name Role Phone SELMA LAU Primary Care Provider [phone] [facility] GASTROENTEROLOGY Gastroen terologist Assessment Encounter Date Assessment Date Assessment LastModified by Organization Details LastModified Time 10/01/2023 10/01/2023 WEA- 02/26/23 Call office if worse, ER if life-threatening illness RTC in 3 months- he plans transfer to [facility] He voices understanding of plan and agrees [email or web address] Not available 10/01/2023 11:11:03 06/03/2024 06/03/2024 02/27/2024: Gluc 102, ALT/AST 56/72 TG 209 [email or web address] Not available 06/03/2024 15:03:47 10/07/2024 10/07/2024 02/27/2024: Gluc 102, ALT/AST 56/72 TG 209 09/10/2024: Lipids: Stable Not available 10/07/2024 12:04:55 12/02/2024 12/02/2024 02/27/2024: Gluc 102, ALT/AST 56/72 TG 209 09/10/2024: Lipids: Stable Not available 12/01/2024 14:24:32 Plan of Treatment Reminders Order Date Submit Date Provider Last Modified By Organization Details Last Modified Time Details Appointments Any 15 2024 03:45P Khoi gordon MD Not available Not available Not available Lab vitamin D, 25-hydrox y, total, serum 2024 025 [facility] (Lab), [address] [place], [address], 12/03/2024 10:15:31 lipid panel, serum 2024 025 [facility] (Lab), [address] [place], [address], 12/03/2024 10:15:31 CBC w/ auto diff 2024 025 [facility] (Lab), [address] [place], [address], 12/03/2024 10:15:31 TSH, serum or plasma 2024 025 [facility] (Lab), [address] [place], [address], 12/03/2024 10:15:31 CMP, serum or plasma 2024 025 [facility] (Lab), [address] [place], [address], 12/03/2024 10:15:31 vitamin B12 + folate, serum or blood 2024 025 [facility] (Lab), [address] [place], [address], 12/03/2024 10:15:31 vitamin D, 25-hydrox y, total, serum [address] (Lab), [address] [place], [address], 10/07/2024 12:04:03 lipid panel, serum [address] (Lab), [address] [place], [address], 10/07/2024 12:04:01 CBC w/ auto diff [address] (Lab), [address] [place], [address], 10/07/2024 12:04:02 TSH, serum or plasma [address] (Lab), [address] [place], [address], 10/07/2024 12:04:02 CMP, serum or plasma [address] (Lab), [address] [place], [address], 10/07/2024 12:04:02 vitamin B12 + folate, serum or blood [address] (Lab), [address] [place], [address], 10/07/2024 12:04:03 vitamin D, 25-hydrox y, total, serum [address] (Lab), [address] [place], [address], 07/31/2024 09:31:38 lipid panel, serum 2023 024 TIEN [facility] (Lab), [address] [place], [address], 09/10/2024 12:23:17 CBC w/ auto diff [address] (Lab), [address] [place], [address], 07/31/2024 09:30:59 TSH, serum or plasma [address] (Lab), [address] [place], [address], 07/31/2024 09:31:09 CMP, serum or plasma [address] (Lab), [address] [place], [address], 07/31/2024 09:31:18 vitamin B12 + folate, serum or blood [address] (Lab), [address] [place], [address], 07/31/2024 09:31:29 lipid panel, serum 2023 024 [facility] (Lab), [address] [place], [address], 02/27/2024 12:19:52 CBC w/ auto diff 2023 024 [facility] (Lab), [address] [place], [address], 02/27/2024 11:37:16 TSH, serum or plasma 2023 024 [facility] (Lab), [address] [place], [address], 02/27/2024 12:36:54 CMP, serum or plasma 2023 024 [facility] (Lab), [address] [place], [address], 02/27/2024 12:19:58 vitamin D, 25-hydrox y, total, serum [address] (Lab), [address] [place], [address], 03/04/2024 09:27:11 vitamin B12 + folate, serum or blood 2023 024 [email or web address] [facility] (Lab), [address] [place], [address], 03/04/2024 09:27:11 vitamin D, 25-hydrox y, total, serum 2022 023 [email or web address] [facility] (Lab), [address] [place], [address], 10/29/2023 15:48:13 CMP, serum or plasma 2022 023 [facility] (Lab), [address] [place], [address], 10/01/2023 12:49:29 CBC w/ auto diff 2022 023 [facility] (Lab), [address] [place], [address], 10/01/2023 13:23:55 glycohemo globin, total, blood 2022 023 [facility] (Lab), [address] [place], [address], 10/01/2023 18:36:59 lipid panel, serum 2022 023 [facility] (Lab), [address] [place], [address], 10/01/2023 12:49:34 TSH, serum or plasma 2022 023 [facility] (Lab), [address] [place], [address], 10/01/2023 13:53:16 Referral gastroent erologist referral - Please call patient to schedule an appointme nt. Thank you. 2024 025 leslie Zapata MD, [address] [facility], [facility] [address], [place], [address], 12/03/2024 14:08:14 cardiolog ist referral - Please call patient to schedule an appointme nt. Thank you. 2024 025 [email or web address] [facility], [address] [facility], [address], [place], [address], 12/03/2024 10:47:33 gastroent erologist referral 2023 024 Familia Koroma MD, [address] [facility] [address], [place], [address], 10/07/2024 14:41:22 cardiolog ist referral - Please call patient to schedule. 2023 024 FRANCI Kim MD, [address], [address], [place], [address], 10/14/2024 15:50:39 gastroent erologist referral 2023 024 [email or web address] Familia Koroma MD, [address] [facility] [address], [address], [place], [address], 10/07/2024 14:41:48 cardiolog ist referral 2023 024 [email or web address] Fernando Kim MD, [address], [address], [place], [address], 10/07/2024 14:42:08 gastroent erologist referral 2023 024 TIEN Koroma MD, [address] [facility] [address], [place], [address], 05/06/2024 09:35:44 cardiolog ist referral 2023 024 [email or web address] Kim MD, [address], [address], [place], [address], 10/07/2024 14:42:12 Procedures upper endoscopy procedure (EGD) (PROC) - Please call patient to schedule. 2024 025 [email or web address] Familia Koroma MD, [address], [address], [place], [address], 12/02/2024 16:29:20 upper endoscopy procedure (EGD) (PROC) - Please call patient to schedule. 2023 024 FRANCI Koroma MD, [address], [address], [place], [address], 10/14/2024 15:40:39 upper endoscopy procedure (EGD) (PROC) 2023 024 [email or web address] Koroma MD, [address], [address], [place], [address], 10/07/2024 14:19:56 upper endoscopy procedure (EGD) (PROC) 2023 024 jenny Koroma MD, [address], [place], [address], 10/07/2024 14:20:00 Surgeries None recorded. Imaging None recorded. Medication Orders bupropion HCl XL 300 mg 24 hr tablet, extended release 2023 024 [facility]armacy #[id number], [address], [place], [address], 02/26/2024 16:01:54 albuterol sulfate HFA 90 mcg/actua tion aerosol inhaler 2023 024 [facility]armacy #[id number], [address], [place], [address], 02/26/2024 16:01:54 omeprazol e 40 mg capsule,d elayed release 2023 024 [facility]/Pharmacy #[id number], [address] [place], [address], 02/26/2024 16:01:54 Patient TargetsNo targets recorded. Patient InstructionsNo instructions recorded. Reason for Referral Plant Specialist Referral for Ulcerative colitis Referring Physician: Selma Lau Internal [facility], Encounter Date: 02/26/2024 Battery Filler Referral for Sy ncope Referring Physician: Selma Lau Internal Medicine, Encounter Date: 02/26/2024 Battery Filler Referral for Sy ncope Referring Physician: Selma Lau Internal Medicine, Encounter Date: 06/03/2024 Plant Specialist Referral for Ulcerative colitis Referring Physician: Selma Lau Internal Medicine, Encounter Date: 06/03/2024 Battery Filler Referral for Sy ncope Please call patient to schedule. Referring Physician: Angelique Gonzalez Medicine, Encounter Date: 10/07/2024 Plant Specialist Referral for Ulcerative colitis Referring Physician: Selma Lau Internal Medicine, Encounter Date: 10/07/2024 Battery Filler Referral for Sy ncope Please call patient to schedule an appointment. Thank you. Referring Physician: Selma Lau Internal Medicine, Encounter Date: 12/02/2024 Plant Specialist Referral for Ulcerative colitis Please call patient to schedule an appointment. Thank you. Referring Physician: Angelique Gonzalez Medicine, Encounter Date: 12/02/2024 Results Created Date Observation Date Name Description Value Unit Range Abnormal Flag Note LastModifiedBy Organization Detail LastModifiedTime 10/01/20 23 10/01/2023 COMPR EHENS PENNY METAB OLIC PANEL sodium 140 mmol/ L 137-14 5 Not Available [facility] (Lab) [address], [place], [address], 10/01/2023 12:49:29 10/01/2010/01/2023 COMPR EHENS PENNY METAB OLIC PANEL potassium 4.3 mmol/ L 3.5-5. 1 Not Available [facility] (Lab) [address] [place], [address], 10/01/2023 12:49:29 10/01/20 23 10/01/2023 COMPR EHENS PENNY METAB OLIC PANEL chloride 106 mmol/ L 98-107 Not Available [facility] (Lab) [address] [place], [address], 10/01/2023 12:49:29 10/01/20 23 10/01/2023 COMPR EHENS PENNY METAB OLIC PANEL carbon dioxide 24 mmol/ L 22-30 Not Available [facility] (Lab) [address] [place], [address], 10/01/2023 12:49:29 10/01/20 23 10/01/2023 COMPR EHENS PENNY METAB OLIC PANEL anion gap 14.3 mmol/ L 14-22 Not Available [facility] (Lab) [address] [place], [address], 10/01/2023 12:49:29 10/01/20 23 10/01/2023 COMPR EHENS PENNY METAB OLIC PANEL glucose 104 mg/dL 70-99 high Not Available [facility] (Lab) [address] [place], [address], 10/01/2023 12:49:29 10/01/20 23 10/01/2023 COMPR EHENS PENNY METAB OLIC PANEL BUN 17 mg/dL 8-19 Not Available [facility] (Lab) [address] [place], [address], 10/01/2023 12:49:29 10/01/20 23 10/01/2023 COMPR EHENS PENNY METAB OLIC PANEL creatinine 1.03 mg/dL 0.66-1 .25 Not Available [facility] (Lab) [address] [place], [address], 10/01/2023 12:49:29 10/01/20 23 10/01/2023 COMPR EHENS PENNY METAB OLIC PANEL GFR >60 Refer ence Range : [place] ge GFR Healt hy Adult : >60 mL/mi n/1.7 3 m2 Chron ic Kidne y Disea se: 15-60 mL/mi n/1.7 3 m2 Kidne y Failu re: <15/m L/min /1.73 m2 www.n iddk. nih.g ov The MDRD study equat ion has not been valid ated in child colt <18 years of age; pregn ant women ; the elder ly >85 years of age; or in some racia l or ethni c subgr oups, such as Hispa nics. Outsi de the valid ated agata eters , estim ated GFR is less accur ate, requi ring clini tristan judgm ent on a case- by-ca se basis . Clini tristan inter preta tion for other races and ages must be made by the clini terri. The MDRD study equat ion has not been valid ated for the evalu ation of serum creat inine relat ed to nutri kesha l statu s or medic ation usage . For perso ns <18 years of age, a pedia tric GFR calcu lator is avail able on the [facility] websi te: https :[email or web address] hassan.kelvin rg/pr ofess ional s/kdo qi/gf r_cal culat or Not Available [facility] (Lab) [address] [place], [address], 10/01/2023 12:49:29 10/01/20 23 10/01/2023 COMPR EHENS PENNY METAB OLIC PANEL alkaline phosphatase 92 U/L 38-126 Not Available [facility] (Lab) [address] [place], [address], 10/01/2023 12:49:29 10/01/20 23 10/01/2023 COMPR EHENS PENNY METAB OLIC PANEL alanine aminotransfe rase 40 U/L 0-50 Not Available [facility] (Lab) [address] [place], [address], 10/01/2023 12:49:29 10/01/20 23 10/01/2023 COMPR EHENS PENNY METAB OLIC PANEL aspartate aminotransfe rase 52 U/L 15-46 high Not Available [facility] (Lab) [address] [place], [address], 10/01/2023 12:49:29 10/01/20 23 10/01/2023 COMPR EHENS PENNY METAB OLIC PANEL bilirubin, total 0.70 mg/dL 0.20-1 .30 Not Available [facility] (Lab) [address] [place], [address], 10/01/2023 12:49:29 10/01/20 23 10/01/2023 COMPR EHENS PENNY METAB OLIC PANEL calcium 9.9 mg/dL 8.4-10 .2 Not Available [facility] (Lab) [address] [place], [address], 10/01/2023 12:49:29 10/01/20 23 10/01/2023 COMPR EHENS PENNY METAB OLIC PANEL total protein 8.0 g/dL 6.3-8. 2 Not Available [facility] (Lab) [address] [place], [address], 10/01/2023 12:49:29 10/01/20 23 10/01/2023 COMPR EHENS PENNY METAB OLIC PANEL albumin 4.6 g/dL 3.4-5. 0 Not Available [facility] (Lab) [address] [place], [address], 10/01/2023 12:49:29 10/01/20 23 10/01/2023 COMPR EHENS PENNY METAB OLIC PANEL globulin 3.4 g/dL 2.6-4. 2 Not Available [facility] (Lab) [address] [place], [address], 10/01/2023 12:49:29 10/01/20 23 10/01/2023 COMPR EHENS PENNY METAB OLIC PANEL A/G ratio 1.4 ratio 1.0-2. 0 Not Available [facility] (Lab) [address] [place], [address], 10/01/2023 12:49:29 10/01/2010/01/2023 LIPID PANEL cholesterol 197 mg/dL 140-19 9 NIH JULIEN NSUS RECOM MENDA TION FOR KYARA STERO L: ADULT CHILD LOW RISK: <200 <170 BORDE RLINE : <200- 239 ----- HIGH RISK: >240 >200 Not Available [facility] (Lab) [address] [place], [address], 10/01/2023 12:49:34 10/01/2010/01/2023 LIPID PANEL triglyceride s 150 mg/dL 0-150 NIH JULIEN NSUS REPOR T RECOM MENDA TION FOR TRIGL YCERI PITER: ADULT CHILD LOW RISK: <150 ----- BODER LINE: 150-1 99 ----- HIGH RISK: >200 ----- Not Available [facility] (Lab) [address] [place], [address], 10/01/2023 12:49:34 10/01/2010/01/2023 LIPID PANEL HDL cholesterol 39 mg/dL 40- low Not Available [facility] (Lab) [address] [place], [address], 10/01/2023 12:49:34 10/01/2010/01/2023 LIPID PANEL LDL cholesterol, calculated 128 mg/dL 0-130 NIH JULIEN NSUS REPOR T RECOM MENDA TIONS FOR LDL: ADULT CHILD LOW RISK <130 <110 (OPTI MAL LDL) <100 ----- BORDE RLINE : 130-1 59 ----- HIGH RISK: >160 >130 A TRIGL YCERI DE RESUL T >400 INVAL IDATE S THE CALCU LATIO N FOR LDL FRACT IONAT ION - THE LDL RESUL T WILL NOT BE REPOR LUCINDA. Not Available [facility] (Lab) [address] [place], [address], 10/01/2023 12:49:34 10/01/20 23 10/01/2023 CBC/C OMPLE TE BLD COUNT W/DIF F white blood cells 8.2 x10'3 /uL 4.2-10 .8 Not Available [facility] (Lab) [address] [place], [address], 10/01/2023 13:23:55 10/01/2010/01/2023 CBC/C OMPLE TE BLD COUNT W/DIF F red blood cells 5.11 x10'6 /uL 4.10-5 .80 Not Available [facility] (Lab) [address] [place], [address], 10/01/2023 13:23:55 10/01/20 23 10/01/2023 CBC/C OMPLE TE BLD COUNT W/DIF F hemoglobin 15.5 g/dL 13.2-1 7.0 Not Available [facility] (Lab) [address] [place], [address], 10/01/2023 13:23:55 10/01/20 23 10/01/2023 CBC/C OMPLE TE BLD COUNT W/DIF F hematocrit 46.9 % 39.3-5 0.0 Not Available [facility] (Lab) [address] [place], [address], 10/01/2023 13:23:55 10/01/2010/01/2023 CBC/C OMPLE TE BLD COUNT W/DIF F mean red cell volume 91.8 fL 80.0-9 7.0 Not Available [facility] (Lab) [address] [place], [address], 10/01/2023 13:23:55 10/01/20 23 10/01/2023 CBC/C OMPLE TE BLD COUNT W/DIF F mean red cell hemoglobin 30.3 pg 27.0-3 3.0 Not Available [facility] (Lab) [address] [place], [address], 10/01/2023 13:23:55 10/01/20 23 10/01/2023 CBC/C OMPLE TE BLD COUNT W/DIF F mean RBC HGB concentratio n 33.0 g/dL 31.0-3 6.0 Not Available [facility] (Lab) [address] [place], [address], 10/01/2023 13:23:55 10/01/20 23 10/01/2023 CBC/C OMPLE TE BLD COUNT W/DIF F red cell distribution width 13.8 % 11.8-1 5.5 Not Available [facility] (Lab) [address] [place], [address], 10/01/2023 13:23:55 10/01/20 23 10/01/2023 CBC/C OMPLE TE BLD COUNT W/DIF F platelets 285 x10'3 /uL 150-40 0 Not Available [facility] (Lab) [address] [place], [address], 10/01/2023 13:23:55 10/01/20 23 10/01/2023 CBC/C OMPLE TE BLD COUNT W/DIF F mean platelet volume 12.1 fL 9.0-12 .4 Not Available [facility] (Lab) [address] [place], [address], 10/01/2023 13:23:55 10/01/20 23 10/01/2023 CBC/C OMPLE TE BLD COUNT W/DIF F neutrophils 77.8 % 39.0-7 2.0 high Not Available [facility] (Lab) [address] [place], [address], 10/01/2023 13:23:55 10/01/20 23 10/01/2023 CBC/C OMPLE TE BLD COUNT W/DIF F lymphocytes 13.2 % 16.0-4 7.0 low Not Available [facility] (Lab) [address] [place], [address], 10/01/2023 13:23:55 10/01/20 23 10/01/2023 CBC/C OMPLE TE BLD COUNT W/DIF F monocytes 7.1 % 5.0-12 .0 Not Available [facility] (Lab) [address] [place], [address], 10/01/2023 13:23:55 10/01/20 23 10/01/2023 CBC/C OMPLE TE BLD COUNT W/DIF F eosinophils 1.3 % 1.0-7. 0 Not Available [facility] (Lab) [address] [place], [address], 10/01/2023 13:23:55 10/01/20 23 10/01/2023 CBC/C OMPLE TE BLD COUNT W/DIF F basophils 0.4 % 0.0-2. 0 Not Available [facility] (Lab) [address] [place], [address], 10/01/2023 13:23:55 10/01/20 23 10/01/2023 CBC/C OMPLE TE BLD COUNT W/DIF F immature granulocytes 0.2 % 0.00-0 .50 Not Available [facility] (Lab) [address] [place], [address], 10/01/2023 13:23:55 10/01/20 23 10/01/2023 CBC/C OMPLE TE BLD COUNT W/DIF F neutrophils, absolute count 6.36 x10'3 /uL 1.5-8. 0 Not Available [facility] (Lab) [address] [place], [address], 10/01/2023 13:23:55 10/01/20 23 10/01/2023 CBC/C OMPLE TE BLD COUNT W/DIF F lymphocytes, absolute count 1.08 x10'3 /uL 1.07-3 .43 Not Available [facility] (Lab) [address] [place], [address], 10/01/2023 13:23:55 10/01/20 23 10/01/2023 CBC/C OMPLE TE BLD COUNT W/DIF F monocytes, absolute count 0.58 x10'3 /uL 0.29-0 .99 Not Available [facility] (Lab) [address] [place], [address], 10/01/2023 13:23:55 10/01/20 23 10/01/2023 CBC/C OMPLE TE BLD COUNT W/DIF F eosinophils, absolute count 0.11 x10'3 /uL 0.02-0 .53 Not Available [facility] (Lab) [address] [place], [address], 10/01/2023 13:23:55 10/01/20 23 10/01/2023 CBC/C OMPLE TE BLD COUNT W/DIF F basophils, absolute count 0.03 x10'3 /uL 0.01-0 .08 Not Available [facility] (Lab) [address] [place], [address], 10/01/2023 13:23:55 10/01/20 23 10/01/2023 CBC/C OMPLE TE BLD COUNT W/DIF F immature granulocytes ,absolute 0.02 x10'3 /uL 0.00-0 .05 Not Available [facility] (Lab) [address] [place], [address], 10/01/2023 13:23:55 10/01/20 23 10/01/2023 CBC/C OMPLE TE BLD COUNT W/DIF F nucleated red blood cells 0.0 % -0 Not Available [facility] (Lab) [address] [place], [address], 10/01/2023 13:23:55 10/01/20 23 10/01/2023 CBC/C OMPLE TE BLD COUNT W/DIF F NRBC# 0.00 x10'3 /uL Not Available [facility] (Lab) [address] [place], [address], 10/01/2023 13:23:55 10/01/20 23 10/01/2023 VITAM IN D 25-HY DROXY [id number] 28.9 NG/mL 30-100 low Vitam in D Statu s: Defic ient: <20 ng/mL Insuf ficie nt: 20-29 ng/mL Suffi cient : 30-10 0 ng/mL Not Available [facility] (Lab) [address] [place], [address], 10/01/2023 13:25:42 10/01/2010/01/2023 TSH W/REF MATTHEW FT4 TSH with reflex free T4 0.972 uIU/m L 0.465- 4.680 Not Available [facility] (Lab) [address] [place], [address], 10/01/2023 13:53:16 10/01/2010/01/2023 HEMOG LOBIN A1C HA1C 5.2 % 4.0-6. 0 Diabe gabrielle Scree jennifer Crite karen: <5.7% Consi stent with absen ce of diabe gabrielle 5.7-6 .4% Consi stent with incre ased risk for diabe gabrielle (pred iabet es) >OR=6 .5% Consi stent with diabe gabrielle REFER ENCE: Diabe gabrielle Care 2016, 39(Wilson ppl.1 ):s13 -s22 Not Available [facility] (Lab) [address] [place], [address], 10/01/2023 18:36:59 02/27/20 24 02/27/2024 CBC/C OMPLE TE BLD COUNT W/DIF F white blood cells 5.8 x10'3 /uL 4.2-10 .8 Not Available [facility] (Lab) [address] [place], [address], 02/27/2024 11:37:16 02/27/20 24 02/27/2024 CBC/C OMPLE TE BLD COUNT W/DIF F red blood cells 5.02 x10'6 /uL 4.10-5 .80 Not Available [facility] (Lab) [address] [place], [address], 02/27/2024 11:37:16 02/27/20 24 02/27/2024 CBC/C OMPLE TE BLD COUNT W/DIF F hemoglobin 13.9 g/dL 13.2-1 7.0 Not Available [facility] (Lab) [address] [place], [address], 02/27/2024 11:37:16 02/27/20 24 02/27/2024 CBC/C OMPLE TE BLD COUNT W/DIF F hematocrit 43.0 % 39.3-5 0.0 Not Available [facility] (Lab) [address] [place], [address], 02/27/2024 11:37:16 02/27/20 24 02/27/2024 CBC/C OMPLE TE BLD COUNT W/DIF F mean red cell volume 85.7 fL 80.0-9 7.0 Not Available [facility] (Lab) [address] [place], [address], 02/27/2024 11:37:16 02/27/20 24 02/27/2024 CBC/C OMPLE TE BLD COUNT W/DIF F mean red cell hemoglobin 27.7 pg 27.0-3 3.0 Not Available [facility] (Lab) [address] [place], [address], 02/27/2024 11:37:16 02/27/20 24 02/27/2024 CBC/C OMPLE TE BLD COUNT W/DIF F mean RBC HGB concentratio n 32.3 g/dL 31.0-3 6.0 Not Available [facility] (Lab) [address] [place], [address], 02/27/2024 11:37:16 02/27/20 24 02/27/2024 CBC/C OMPLE TE BLD COUNT W/DIF F red cell distribution width 13.8 % 11.8-1 5.5 Not Available [facility] (Lab) [address] [place], [address], 02/27/2024 11:37:16 02/27/20 24 02/27/2024 CBC/C OMPLE TE BLD COUNT W/DIF F platelets 312 x10'3 /uL 150-40 0 Not Available [facility] (Lab) [address] [place], [address], 02/27/2024 11:37:16 02/27/20 24 02/27/2024 CBC/C OMPLE TE BLD COUNT W/DIF F mean platelet volume 12.0 fL 9.0-12 .4 Not Available [facility] (Lab) [address] [place], [address], 02/27/2024 11:37:16 02/27/20 24 02/27/2024 CBC/C OMPLE TE BLD COUNT W/DIF F neutrophils 70.2 % 39.0-7 2.0 Not Available [facility] (Lab) [address] [place], [address], 02/27/2024 11:37:16 02/27/20 24 02/27/2024 CBC/C OMPLE TE BLD COUNT W/DIF F lymphocytes 20.2 % 16.0-4 7.0 Not Available [facility] (Lab) [address] [place], [address], 02/27/2024 11:37:16 02/27/20 24 02/27/2024 CBC/C OMPLE TE BLD COUNT W/DIF F monocytes 7.2 % 5.0-12 .0 Not Available [facility] (Lab) [address] [place], [address], 02/27/2024 11:37:16 02/27/20 24 02/27/2024 CBC/C OMPLE TE BLD COUNT W/DIF F eosinophils 1.2 % 1.0-7. 0 Not Available [facility] (Lab) [address] [place], [address], 02/27/2024 11:37:16 02/27/20 24 02/27/2024 CBC/C OMPLE TE BLD COUNT W/DIF F basophils 0.9 % 0.0-2. 0 Not Available [facility] (Lab) [address] [place], [address], 02/27/2024 11:37:16 02/27/20 24 02/27/2024 CBC/C OMPLE TE BLD COUNT W/DIF F immature granulocytes 0.3 % 0.00-0 .50 Not Available [facility] (Lab) [address] [place], [address], 02/27/2024 11:37:16 02/27/20 24 02/27/2024 CBC/C OMPLE TE BLD COUNT W/DIF F neutrophils, absolute count 4.07 x10'3 /uL 1.5-8. 0 Not Available [facility] (Lab) [address] [place], [address], 02/27/2024 11:37:16 02/27/20 24 02/27/2024 CBC/C OMPLE TE BLD COUNT W/DIF F lymphocytes, absolute count 1.17 x10'3 /uL 1.07-3 .43 Not Available [facility] (Lab) [address] [place], [address], 02/27/2024 11:37:16 02/27/20 24 02/27/2024 CBC/C OMPLE TE BLD COUNT W/DIF F monocytes, absolute count 0.42 x10'3 /uL 0.29-0 .99 Not Available [facility] (Lab) [address] [place], [address], 02/27/2024 11:37:16 02/27/20 24 02/27/2024 CBC/C OMPLE TE BLD COUNT W/DIF F eosinophils, absolute count 0.07 x10'3 /uL 0.02-0 .53 Not Available [facility] (Lab) [address] [place], [address], 02/27/2024 11:37:16 02/27/20 24 02/27/2024 CBC/C OMPLE TE BLD COUNT W/DIF F basophils, absolute count 0.05 x10'3 /uL 0.01-0 .08 Not Available [facility] (Lab) [address] [place], [address], 02/27/2024 11:37:16 02/27/20 24 02/27/2024 CBC/C OMPLE TE BLD COUNT W/DIF F immature granulocytes ,absolute 0.02 x10'3 /uL 0.00-0 .05 Not Available [facility] (Lab) [address] [place], [address], 02/27/2024 11:37:16 02/27/20 24 02/27/2024 CBC/C OMPLE TE BLD COUNT W/DIF F nucleated red blood cells 0.0 % -0 Not Available [facility] (Lab) [address] [place], [address], 02/27/2024 11:37:16 02/27/20 24 02/27/2024 CBC/C OMPLE TE BLD COUNT W/DIF F NRBC# 0.00 x10'3 /uL Not Available [facility] (Lab) [address] [place], [address], 02/27/2024 11:37:16 02/27/20 24 02/27/2024 LIPID PANEL cholesterol 193 mg/dL 140-19 9 NIH JULIEN NSUS RECOM MENDA TION FOR KYARA STERO L: ADULT CHILD LOW RISK: <200 <170 BORDE RLINE : <200- 239 ----- HIGH RISK: >240 >200 Not Available [facility] (Lab) [address] [place], [address], 02/27/2024 12:19:52 02/27/20 24 02/27/2024 LIPID PANEL triglyceride s 209 mg/dL 0-150 high NIH JULIEN NSUS REPOR T RECOM MENDA TION FOR TRIGL YCERI PITER: ADULT CHILD LOW RISK: <150 ----- BODER LINE: 150-1 99 ----- HIGH RISK: >200 ----- Not Available [facility] (Lab) [address] [place], [address], 02/27/2024 12:19:52 02/27/20 24 02/27/2024 LIPID PANEL HDL cholesterol 42 mg/dL 40- Not Available [facility] (Lab) [address] [place], [address], 02/27/2024 12:19:52 02/27/20 24 02/27/2024 LIPID PANEL LDL cholesterol, calculated 109 mg/dL 0-130 NIH JULIEN NSUS REPOR T RECOM MENDA TIONS FOR LDL: ADULT CHILD LOW RISK <130 <110 (OPTI MAL LDL) <100 ----- BORDE RLINE : 130-1 59 ----- HIGH RISK: >160 >130 A TRIGL YCERI DE RESUL T >400 INVAL IDATE S THE CALCU LATIO N FOR LDL FRACT IONAT ION - THE LDL RESUL T WILL NOT BE REPOR LUCINDA. Not Available [facility] (Lab) [address] [place], [address], 02/27/2024 12:19:52 02/27/20 24 02/27/2024 COMPR EHENS PENNY METAB OLIC PANEL sodium 140 mmol/ L 137-14 5 Not Available [facility] (Lab) [address] [place], [address], 02/27/2024 12:19:58 02/27/20 24 02/27/2024 COMPR EHENS PENNY METAB OLIC PANEL potassium 4.4 mmol/ L 3.5-5. 1 Not Available [facility] (Lab) [address] [place], [address], 02/27/2024 12:19:58 02/27/20 24 02/27/2024 COMPR EHENS PENNY METAB OLIC PANEL chloride 108 mmol/ L 98-107 high Not Available [facility] (Lab) [address] [place], [address], 02/27/2024 12:19:58 02/27/20 24 02/27/2024 COMPR EHENS PENNY METAB OLIC PANEL carbon dioxide 24 mmol/ L 22-30 Not Available [facility] (Lab) [address] [place], [address], 02/27/2024 12:19:58 02/27/20 24 02/27/2024 COMPR EHENS PENNY METAB OLIC PANEL anion gap 12.4 mmol/ L 14-22 low Not Available [facility] (Lab) [address] [place], [address], 02/27/2024 12:19:58 02/27/20 24 02/27/2024 COMPR EHENS PENNY METAB OLIC PANEL glucose 102 mg/dL 70-99 high Not Available [facility] (Lab) [address] [place], [address], 02/27/2024 12:19:58 02/27/20 24 02/27/2024 COMPR EHENS PENNY METAB OLIC PANEL BUN 17 mg/dL 8-19 Not Available [facility] (Lab) [address] [place], [address], 02/27/2024 12:19:58 02/27/20 24 02/27/2024 COMPR EHENS PENNY METAB OLIC PANEL creatinine 1.04 mg/dL 0.66-1 .25 Not Available [facility] (Lab) [address] [place], [address], 02/27/2024 12:19:58 02/27/20 24 02/27/2024 COMPR EHENS PENNY METAB OLIC PANEL GFR >60 Refer ence Range : [place] ge GFR Healt hy Adult : >60 mL/mi n/1.7 3 m2 Chron ic Kidne y Disea se: 15-60 mL/mi n/1.7 3 m2 Kidne y Failu re: <15/m L/min /1.73 m2 www.n iddk. nih.g ov The MDRD study equat ion has not been valid ated in child colt <18 years of age; pregn ant women ; the elder ly >85 years of age; or in some racia l or ethni c subgr oups, such as Deanna nics. Outsi de the valid ated agata eters , estim ated GFR is less accur ate, requi ring clini tristan judgm ent on a case- by-ca se basis . Clini tristan inter preta tion for other races and ages must be made by the clini terri. The MDRD study equat ion has not been valid ated for the evalu ation of serum creat inine relat ed to nutri kesha l statu s or medic ation usage . For perso ns <18 years of age, a pedia tric GFR calcu lator is avail able on the F websi te: https ://thomas w.alexander mullinsy.o rg/pr ofess ional s/kdo qi/gf r_cal culat or Not Available [facility] (Lab) [address] [place], [address], 02/27/2024 12:19:58 02/27/20 24 02/27/2024 COMPR EHENS PENNY METAB OLIC PANEL alkaline phosphatase 99 U/L 38-126 Not Available [facility] (Lab) [address] [place], [address], 02/27/2024 12:19:58 02/27/20 24 02/27/2024 COMPR EHENS PENYN METAB OLIC PANEL alanine aminotransfe rase 56 U/L 0-50 high Not Available [facility] (Lab) [address] [place], [address], 02/27/2024 12:19:58 02/27/20 24 02/27/2024 COMPR EHENS PENNY METAB OLIC PANEL aspartate aminotransfe rase 72 U/L 15-46 high Not Available [facility] (Lab) [address] [place], [address], 02/27/2024 12:19:58 02/27/20 24 02/27/2024 COMPR EHENS PENNY METAB OLIC PANEL bilirubin, total 0.50 mg/dL 0.20-1 .30 Not Available [facility] (Lab) [address] [place], [address], 02/27/2024 12:19:58 02/27/20 24 02/27/2024 COMPR EHENS PENNY METAB OLIC PANEL calcium 9.4 mg/dL 8.4-10 .2 Not Available [facility] (Lab) [address] [place], [address], 02/27/2024 12:19:58 02/27/20 24 02/27/2024 COMPR EHENS PENNY METAB OLIC PANEL total protein 7.7 g/dL 6.3-8. 2 Not Available [facility] (Lab) [address] [place], [address], 02/27/2024 12:19:58 02/27/20 24 02/27/2024 COMPR EHENS PENNY METAB OLIC PANEL albumin 4.5 g/dL 3.4-5. 0 Not Available [facility] (Lab) [address] [place], [address], 02/27/2024 12:19:58 02/27/20 24 02/27/2024 COMPR EHENS PENNY METAB OLIC PANEL globulin 3.2 g/dL 2.6-4. 2 Not Available [facility] (Lab) [address] [place], [address], 02/27/2024 12:19:58 02/27/20 24 02/27/2024 COMPR EHENS PENNY METAB OLIC PANEL A/G ratio 1.4 ratio 1.0-2. 0 Not Available [facility] (Lab) [address] [place], [address], 02/27/2024 12:19:58 02/27/20 24 02/27/2024 VITAM IN D 25-HY DROXY vd25oh 31.0 NG/mL 30-100 Vitam in D Statu s: Defic ient: <20 ng/mL Insuf ficie nt: 20-29 ng/mL Suffi cient : 30-10 0 ng/mL Not Available [facility] (Lab) [address] [place], [address], 02/27/2024 12:23:23 02/27/2002/27/2024 TSH W/REF MATTHEW FT4 TSH with reflex free T4 0.815 uIU/m L 0.465- 4.680 Not Available [facility] (Lab) [address] [place], [address], 02/27/2024 12:36:54 02/27/20 24 02/27/2024 VITAM IN B12 (CACHORRO HERMILA ) vb12 750 pg/mL 239-93 1 Not Available [facility] (Lab) [address] [place], [address], 02/27/2024 13:10:59 02/27/20 24 02/27/2024 FOLAT E, SERUM /PLAS MA folate 8.12 NG/mL 2.76-2 0.0 Not Available [facility] (Lab) [address] [place], [address], 02/27/2024 13:11:05 Result Notes None recorded. Problems Name Problem SNOMED Code Status Onset Date Resolution Date Notes Provider Name and Address Organization Details Recorded Time Sprain of left ankle 9636092031362 9105 Active 2019 Not Available [facility] 3 05:03:15 Non-alcoho lic fatty liver 496653280 Active Not Available [facility] 3 05:03:15 Vitamin D deficiency 98228357 Active 2021 Not Available [facility] 3 05:03:15 Chronic fatigue syndrome 38158232 Active Not Available [facility] 3 05:03:15 Pancreatit is 61040593 Active Not Available [facility] 3 05:03:15 Prediabete s 371802003 Active 2022 Not Available [facility] 3 05:03:15 Insulin resistance 521136102 Active 2022 Not Available [facility] 3 05:03:15 Asthma 513643524 Active 2022 Not Available [facility] 3 05:03:15 Nicotine dependence with current use 423256409 Active 2022 Not Available [facility] 3 05:03:15 Gastroesop hageal reflux disease without esophagiti s 467309867 Active 2022 Not Available [facility] 3 05:03:15 Ulcerative colitis 55437220 Active 2022 Not Available [facility] 3 05:03:15 Syncope 190988910 Active 2022 Not Available [facility] 3 05:03:15 Hyperlipid emia 45913939 Active 2022 Not Available [facility] 3 05:03:15 Finding of body mass index 485513246 Active 2022 Not Available [facility] 3 05:03:15 Lesion of brain 431950375 Active 2022 Not Available [facility] 3 05:03:15 Colloid cyst of third ventricle 34313019 Active 2022 Not Available [facility] 3 05:03:15 Anxiety 35638635 Active 2022 Not Available [facility] 3 05:03:15 Smoker 77651875 Active 2023 Selma austin MD [address] [facility], [address], [address] , [facility] 4 15:29:57 Serum vitamin B12 below reference range 709758519 Active 2023 Selma austin MD [address] [facility], [address], [address] , [facility] 4 15:34:05 Liver enzymes level above reference range 485002946 Active 2023 Alejandra Vizcarra MA [facility], [employer] [facility] 4 14:02:20 Problem Notes None recorded. Procedures Surgical History Date Name Laterality Status Provider Name and Address Organization Details Recorded Time 2 Colonoscopy completed Not Available [facility] 12/21/19 23 06:39:38 Imaging Results None recorded. Procedure Notes None recorded. Medical Equipment None Reported. Allergies No known drug allergies Medications Name Sig Start Date Stop Date Status Note LastModified by Organization Details LastModified Time prednisone 10 mg tablet TAKE 4 TABLETS BY MOUTH DAILY 06/12 completed Not Available Not Available Not Available ipratropium 0.5 mg-albutero l 3 mg (2.5 mg base)/3 mL nebulizatio n soln INHALE 3 MILLILITE RS BY NEBULIZAT ION ROUTE 4X A DAY OR NEEDED. active Not Available Not Available No t Available Pentasa 250 mg capsule,con trolled release 02/17 completed Not Available Not Available Not Available azithromyci n 250 mg tablet 02/17 completed Not Available Not Available Not Available ranitidine 300 mg tablet Take 1 tablet every day by oral route at bedtime. 02/17 completed Not Available Not Available Not Available ondansetron HCl 4 mg tablet TAKE 1 TABLET BY MOUTH EVERY 6 HOURS NEEDED FOR PAIN 01/30 completed Not Available Not Available Not Available prednisone 20 mg tablet TAKE 2 TABLETS BY MOUTH ONCE A DAY FOR 5 DAYS. 10/07 completed Not Available Not Available Not Available Tubersol 5 tub. unit/0.1 mL intradermal injection solution Inject 0.1 mL by intraderm al route. 01/30 completed Not Available Not Available Not Available prednisone 5 mg tablet PLEASE SEE ATTACHED FOR DETAILED DIRECTION S 12/02 completed Not Available Not Available Not Available metronidazo le 500 mg tablet active Not Available Not Available Not Available ciprofloxac in 500 mg tablet 02/17 completed Not Available Not Available Not Available Tamiflu 75 mg capsule 02/17 completed Not Available Not Available Not Available omeprazole 40 mg capsule,del ayed release TAKE 1 CAPSULE BY MOUTH EVERY DAY NEEDED active Not Available Not Available No t Available triamcinolo ne acetonide 0.1 % topical cream APPLY THIN LAYER TOPICALLY TO THE AFFECTED AREA TWICE DAILY NEEDED 02/25 completed Not Available Not Available Not Available meloxicam 7.5 mg tablet 02/17 completed Not Available Not Available Not Available amoxicillin 875 mg tablet TAKE 1 TABLET BY MOUTH TWICE A DAY FOR 10 DAYS 06/03 completed Not Available Not Available Not Available famotidine 20 mg tablet 02/17 completed Not Available Not Available Not Available dicyclomine 20 mg tablet TK 1 T PO Q 6 H PRN 01/30 completed Not Available Not Available Not Available pantoprazol e 40 mg tablet,denisse yed release TK 1 T PO QD 01/30 completed Not Available Not Available Not Available ferrous sulfate 325 mg (65 mg iron) tablet TAKE 1 TABLET BY MOUTH TWICE A DAY FOR 1 MONTH 02/25 completed Not Available Not Available Not Available balsalazide 750 mg capsule TAKE 3 CAPSULES BY MOUTH 3 TIMES DAILY. active Not Available Not Available No t Available folic acid 1 mg tablet 02/17 completed Not Available Not Available Not Available ergocalcife rol (vitamin D2) 1,250 mcg (50,000 unit) capsule Take 1 capsule every week by oral route. 02/25 completed Not Available Not Available Not Available levofloxaci n 500 mg tablet active Not Available Not Available Not Available albuterol sulfate HFA 90 mcg/actuati on aerosol inhaler INHALE 2 PUFFS BY INHALATIO N EVERY 4 HOURS. active Not Available Not Available No t Available ondansetron 4 mg disintegrat ing tablet DIS ONE T PO Q 8 H active Not Available Not Available No t Available metformin ER 500 mg tablet,exte nded release 24 hr TAKE 1 TABLET BY MOUTH EVERY DAY AT DINNER 09/21 completed Not Available Not Available Not Available escitalopra m 10 mg tablet TAKE 1 TABLET BY MOUTH EVERY DAY 02/25 completed Not Available Not Available Not Available bupropion HCl XL 300 mg 24 hr tablet, extended release TAKE 1 TABLET BY MOUTH EVERY DAY NEEDED active Not Available Not Available No t Available bupropion HCl XL 150 mg 24 hr tablet, extended release TAKE 1 TABLET BY MOUTH EVERY DAY BY MOUTH IN THE MORNING 04/23 completed Not Available Not Available Not Available metformin ER 500 mg 24 hr tablet,exte nded release (gastric retention) Take 1 tablet every day by oral route at dinner. 06/12 completed Not Available Not Available Not Available potassium chloride ER 20 mEq tablet,exte nded release TAKE 1 TABLET BY MOUTH TWICE DAILY 01/30 completed Not Available Not Available Not Available Humira(CF) Pen 40 mg/0.4 mL subcutaneou s kit 04/23 completed Not Available Not Available Not Available Humira(CF) Pen Crohn's-Ulc Colitis-Hid Sup Strt 80 mg/0.8 mL subcut kt 04/23 completed Not Available Not Available Not Available Rinvoq 30 mg tablet,exte nded release active Not Available Not Available Not Available Rinvoq 45 mg tablet,exte nded release Take 1 tablet every day by oral route for 56 days. 12/02 completed Not Available Not Available Not Available Vitals Date Recorded Body height Body mass index (BMI) Body weight Body temperature Heart rate Oxygen saturation Oxygen saturation in Arterial blood by Pulse oximetry Systolic blood pressure Diastolic blood pressure Provider Name and Address Organization Details Last Updated DateTime 3 182.88 cm 32.8 kg/m2 439266. 35 g 97.9 [degF] 90 /min 98 % 98 % 134 mm[Hg] 82 mm[Hg] Nohemy Sandoval MA [facility] 3 10:26:08 Date Recorded Body height Body mass index (BMI) Body weight Body temperature Heart rate Systolic blood pressure Diastolic blood pressure Provider Name and Address Organization Details Last Updated DateTime 4 182.88 cm 31.9 kg/m2 365940. 21 g 97.6 [degF] 90 /min 120 mm[Hg] 72 mm[Hg] Shellie Ramsey Cayla [facility] 4 15:21:19 Date Recorded Body height Body mass index (BMI) Body weight Body temperature Heart rate Systolic blood pressure Diastolic blood pressure Provider Name and Address Organization Details Last Updated DateTime 4 182.88 cm 32.1 kg/m2 090918. 39 g 97.8 [degF] 90 /min 126 mm[Hg] 70 mm[Hg] Shellie Ramsey Cayla [employer] [facility] 4 15:16:30 Date Recorded Body height Body mass index (BMI) Body weight Body temperature Heart rate Systolic blood pressure Diastolic blood pressure Provider Name and Address Organization Details Last Updated DateTime 4 182.88 cm 31.6 kg/m2 723488. 02 g 97.2 [degF] 84 /min 126 mm[Hg] 74 mm[Hg] Shellie Ramsey Cayla [employer] [facility] 4 11:35:44 Date Recorded Body height Body mass index (BMI) Body weight Body temperature Heart rate Oxygen saturation Oxygen saturation in Arterial blood by Pulse oximetry Pain severity - 0-10 verbal numeric rating [Score] - Reported Systolic blood pressure Diastolic blood pressure Provider Name and Address Organization Details Last Updated DateTime 5 182.88 cm 32.3 kg/m2 232472. 98 g 98.2 [degF] 114 /min 94 % 94 % 0 140 mm[Hg] 76 mm[Hg] Venita Cardenas MA [place] [employer] [facility] 5 16:14:28 Social History Question Answer Notes LastModified by Organization Details LastModified Time Tobacco Smoking Status Current Every Day Smoker Nohemy Sandoval, WATSON parnell, PAULINA - [place] [employer] 05/25/2023 10:37:05 What Is Your Level Of Alcohol Consumption? Occasional [id number] Information not available 12/20/2022 What Is Your Level Of Caffeine Consumption? Heavy MIGRATION.0301 [id number] Information not available 12/20/2022 In The 14 Days Before Symptom Onset, Have You Had Close Contact With A Laboratory-confi rmed COVID-19 While That Case Was Ill? No [id number].[id number] [id number] Information not available 12/20/2022 In The 14 Days Before Symptom Onset, Have You Had Close Contact With A Person Who Is Under Investigation For COVID-19 While That Person Was Ill? No MIGRATION.030 [id number] Information not available 12/20/2022 Are You Currently Employed? Yes Information not available 02/26/2024 What Type Of Diet Are You Following? REGULAR MIGRATION.030 [id number] Information not available 12/20/2022 What Is The Highest Grade Or Level Of School You Have Completed Or The Highest Degree You Have Received? 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 No MIGRATION.0301 [id number] Information not available 12/20/2022 What Is The Fluoride Status Of Your Home? Unknown MIGRATION.0301 [id number] Information not available 12/20/2022 Are There Any Guns Present In Your Home? No MIGRATION.0301 [id number] Information not available 12/20/2022 Do You Use Insect Repellent Routinely? No MIGRATION.0301 [id number] Information not available 12/20/2022 Where Do You Live? [place]House MIGRATION.0301 [id number] Information not available 12/20/2022 What Was The Date Of Your Most Recent Tobacco Screening? 12/02/2024 [email or web address] Information not available 12/02/2024 Do You Have Any Pets? Yes MIGRATION.0301 [id number] Information not available 12/20/2022 What Is Your Relationship Status? Single MIGRATION.0301 [id number] Information not available 12/20/2022 Do You Use Your Seat Belt Or Car Seat Routinely? Yes MIGRATION.030 [id number] Information not available 12/20/2022 Do You Have Smoke And Carbon Monoxide Detectors In Your Home? Yes MIGRATION.030 [id number] Information not available 12/20/2022 Are You Passively Exposed To Smoke? Yes MIGRATION.030 [id number] Information not available 12/20/2022 Are There Any Smokers In Your House? No MIGRATION.030 [id number] Information not available 12/20/2022 How Much Tobacco Do You Smoke? 0.5 PPD Down From 1ppd Information not available 06/03/2024 Do You Feel Stressed (tense, Restless, Nervous, Or Anxious, Or Unable To Sleep At Night)? [id number] MIGRATION.030 [id number] Information not available 12/20/2022 Do You Use Any Illicit Or Recreational Drugs? No MIGRATION.030 [id number] Information not available 12/20/2022 Do You Use Sunscreen Routinely? No MIGRATION.030 [id number] Information not available 12/20/2022 Have You Recently Traveled Abroad? No MIGRATION.030 [id number] Information not available 12/20/2022 Do You Have Any Dietary Restrictions? No MIGRATION.030 [id number] Information not available 12/20/2022 Do You Or Have You Ever Used Any Other Forms Of Tobacco Or Nicotine? No Information not available 02/26/2024 Sex: Male Functional Status Question Answer Note LastModified by Organizat ion Details LastModified Time What is your exercise level? Occasional [id number] Information not available 12/20/2022 Mental Status None recorded. Family History Nothing Reported. Medical History Condition Response HIGH CHOLESTEROL / HYPERLIPIDEMIA Y GERD/NAUSEA Y ASTHMA Y HEART DISEASE/HEART PROBLEMS Y ANXIETY DISORDER Y Immunizations Vaccine Type Date Status Note Provider Nam e and Address Organization Details Recorded Time COVID-19, mRNA, LNP-S, PF, 30 mcg/0.3 mL dose 1 completed KARRIE Lerma [place] [facility] [employer] [facility] 10/07/2024 12:01:35 COVID-19, mRNA, LNP-S, PF, 30 mcg/0.3 mL dose 1 completed KARRIE Lerma, [place] - [facility] [employer] [facility] 10/07/2024 12:01:35 Influenza, split virus, trivalent, PF 5 completed Shellie Ramsey, RMA null, [employer] [facility] 10/07/2024 12:01:36 Influenza, split virus, quadrivalent, PF 4 completed Shellie Ramsey RMA null, [employer] [facility] 10/07/2024 12:01:36 Tdap 3 completed Not Available [facility] 10/09/2023 05:03:16 pneumococcal polysaccharide PPV23 3 completed Not Available [facility] 10/09/2023 05:03:16 Influenza, split virus, quadrivalent, PF 2 completed Not Available [facility] 10/09/2023 05:03:16 Influenza, split virus, quadrivalent, PF 3 completed YOU [place] [address], [place], [address], [facility] [employer] [facility] 10/01/2023 11:09:17 Influenza, split virus, trivalent, PF 4 completed Selma Lau MD [address] [facility], [place], [address], [facility] [employer] [facility] 10/10/2024 21:16:17 Past Encounters Encounter ID Performer Location Encounter Start Date Encounter Closed Date Diagnosis/Indication Diagnosis SNOMED-CT Code Diagnosis ICD10 Code Diagnosis Note [id number] [facility] [address] [facility] [address] [place] [address] 01/30/2022 00:00:00 01/30/2022 10:51:00 [id number] [facility] [address] [place] [address] 03/06/2022 00:00:00 03/06/2022 11:36:55 [id number] [facility] [address] [facility] [address] [place] [address] 06/12/2022 00:00:00 06/12/2022 10:48:01 [id number] [facility] [address] [facility] [place] [address] 09/21/2022 00:00:00 09/21/2022 11:40:20 [id number] Barbara Bell, BARREL MAKER-C [facility] [address] [facility] [place] [address] 01/26/2023 15:01:54 01/26/2023 15:48:27 Ulcerative colitis 86143671 K51.90 follows GI-Dr. Henry on Humira Prediabetes 394646867 R7 3.03 he did not start the metformin Diet and exercise recommenda tions discussedh e needs to avoid fast foods and processed foods. Focus on lean meats, fresh vegetables , fresh fruits, whole grains. Recommend 150 g of carbohydra te per day split across all meals. He needs to avoid sugared beverages. Recommend diet soda or flavored fruit drinks such as Crystal Light that are sugar free. Recommend 30 minutes of exercise most days of the week. Is not a candidate for GLP-1 agonist therapy due to personal hx of pancreatit is Insulin resistance 67856 5000 E88.81 as above Vitamin D deficiency 347 89299 E55.9 on supplement Asthma 592052854 J45.90 9 on albuterol p.r.n. Nicotine d ependence with current use 248908538 F17.200 3 minutes spent with patient discussing risks, cessation options. Patient encouraged to quit. He would like to try Wellbutrin -he is aware of side effects, risks, benefits Call office if any change in mood or behavior Gastroesop hageal reflux disease without esophagitis 299832242 K21.9 on omeprazole -he is aware of side effects, risks, benefitsli festyle measures discussed Syncope 292283121 R55 EKG in office today NSR 94, normal rate, normal rhythm, normal P axis, normal PRConsider left atrial enlargemen tGet MRI brain, carotid DopplerGet appointmen t with Cardiology To ER if any further episodes occur Hyperlipidemia 04436796 E78.5 Mild, no meds Working on lifestyle measures Feeling stressed 6565841 06 Z73.3 Support provided to patient todayStart Wellbutrin as aboveHe declined psychiatry and/or counseling referral today [id number] Barbara Bell, BARREL MAKER-C [facility] Internal Med [address] [facility] [place] [address] 02/26/2023 10:00:35 02/26/2023 10:33:02 Ulcerative colitis 34253920 K51.90 follows GI-Dr. Card ing Remicade infusions later this week Prediabetes 785083531 R7 3.03 he did not start the metformin Diet and exercise recommenda tions discussedh e needs to avoid fast foods and processed foods. Focus on lean meats, fresh vegetables , fresh fruits, whole grains. Recommend 150 g of carbohydra te per day split across all meals. He needs to avoid sugared beverages. Recommend diet soda or flavored fruit drinks such as Crystal Light that are sugar free. Recommend 30 minutes of exercise most days of the week. Is not a candidate for GLP-1 agonist therapy due to personal hx of pancreatit is Insulin resistance 08750 5000 E88.81 as above Vitamin D deficiency 347 75547 E55.9 on supplement Asthma 751546978 J45.90 9 on albuterol p.r.n. Nicotine d ependence with current use 299413974 F17.200 3 minutes spent with patient discussing risks, cessation options. Patient encouraged to quit. On Wellbutrin -he is aware of side effects, risks, benefitsCa ll office if any change in mood or behavior Gastroesop hageal reflux disease without esophagitis 620759712 K21.9 on omeprazole -he is aware of side effects, risks, benefitsli festyle measures discussed Syncope 376879131 R55 Carotid Doppler was less than 50% stenosis bilaterall y Has had CT scheduled for todayGet appointmen t with Cardiology - encouraged , his partner states she will call and make apptTo ER if any further episodes occur Hyperlipidemia 34791991 E78.5 Mild, no meds Working on lifestyle measures Feeling stressed 8066767 06 Z73.3 Support provided to patient todayStart Wellbutrin as aboveHe declined psychiatry and/or counseling referral today Adult heal th examination 724286801 Z00.01 Depression screening 171 037959 Z13.31 Finding of body mass index 117426693 E66.3 recommend healthy, well balanced mealsfocus on lean meats, fresh vegetables , fresh fruits, whole grainsredu ce fast/proce ssed foods or eating out to no more than 1-2 times per weekaim to get 30 min of exercise most days of the week- walking is a great choicealso recommend resistance training 2-3 times per week [id number] YOU Salinas [facility] Internal Med [address] [facility], [address] [place] [address] 04/23/2023 10:17:03 04/23/2023 10:45:25 Ulcerative colitis 72642025 K51.90 follows GI-Dr. Card ing Remicade infusions later this week Prediabetes 054979971 R7 3.03 he did not start the metformin Diet and exercise recommenda tions discussedh e needs to avoid fast foods and processed foods. Focus on lean meats, fresh vegetables , fresh fruits, whole grains. Recommend 150 g of carbohydra te per day split across all meals. He needs to avoid sugared beverages. Recommend diet soda or flavored fruit drinks such as Crystal Light that are sugar free. Recommend 30 minutes of exercise most days of the week. Is not a candidate for GLP-1 agonist therapy due to personal hx of pancreatit is Insulin resistance 50422 5000 E88.81 as above Vitamin D deficiency 347 51364 E55.9 on supplement Asthma 971835945 J45.90 9 on albuterol p.r.n. Nicotine d ependence with current use 261852107 F17.200 3 minutes spent with patient discussing risks, cessation options. Patient encouraged to quit. On Wellbutrin Call office if any change in mood or behavior Gastroesop hageal reflux disease without esophagitis 052937856 K21.9 on omeprazole -he is aware of side effects, risks, benefitsli festyle measures discussed Syncope 896569963 R55 Carotid Doppler was less than 50% stenosis bilaterall y Has had CT scheduled for todayGet appointmen t with Cardiology - encouraged , his partner states she will call and make apptTo ER if any further episodes occur Hyperlipidemia 40732508 E78.5 Mild, no meds Working on lifestyle measures Finding of body mass index 034674276 E66.3 recommend healthy, well balanced mealsfocus on lean meats, fresh vegetables , fresh fruits, whole grainsredu ce fast/proce ssed foods or eating out to no more than 1-2 times per weekaim to get 30 min of exercise most days of the week- walking is a great choicealso recommend resistance training 2-3 times per week Anxiety 87110753 F41.9 Support provided to patient todayincre ase Wellbutrin as above- he is aware of side effects, risks, benefitsCa ll office if any change in mood or behaviorHe declined psychiatry and/or counseling referral today [id number] Barbara Bell, NEAL-Mandy [facility] Internal Med [address] [facility], [address] [place] [address] 05/25/2023 10:33:53 05/25/2023 11:01:52 Ulcerative colitis 38434292 K51.90 follows GI-Dr. Shaw Billings infusions Prediabetes 357907182 R7 3.03 he did not start the metformin Diet and exercise recommenda tions discussedh e needs to avoid fast foods and processed foods. Focus on lean meats, fresh vegetables , fresh fruits, whole grains. Recommend 150 g of carbohydra te per day split across all meals. He needs to avoid sugared beverages. Recommend diet soda or flavored fruit drinks such as Crystal Light that are sugar free. Recommend 30 minutes of exercise most days of the week. Is not a candidate for GLP-1 agonist therapy due to personal hx of pancreatit is Insulin resistance 13705 5000 E88.81 as above Vitamin D deficiency 347 90852 E55.9 on supplement Asthma 176312175 J45.90 9 on albuterol p.r.n. Nicotine d ependence with current use 917163913 F17.200 3 minutes spent with patient discussing risks, cessation options. Patient encouraged to quit. On Wellbutrin Call office if any change in mood or behavior Gastroesop hageal reflux disease without esophagitis 519342361 K21.9 on omeprazole -he is aware of side effects, risks, benefitsli festyle measures discussed Syncope 347567445 R55 Carotid Doppler was less than 50% stenosis bilaterall y Has had CT scheduled for todayGet appointmen t with Cardiology - encouraged , his partner states she will call and make apptTo ER if any further episodes occur Hyperlipidemia 87644743 E78.5 Mild, no meds Working on lifestyle measures Finding of body mass index 206466152 E66.3 recommend healthy, well balanced mealsfocus on lean meats, fresh vegetables , fresh fruits, whole grainsredu ce fast/proce ssed foods or eating out to no more than 1-2 times per weekaim to get 30 min of exercise most days of the week- walking is a great choicealso recommend resistance training 2-3 times per week Anxiety 44246240 F41.9 Support provided to patient todayOn Wellbutrin as above, add lexapro- he is aware of side effects, risks, benefitsCa ll office if any change in mood or behaviorHe declined psychiatry and/or counseling referral today Over 30 minutes spent with patient over half spent on counseling [id number] YOU Salinas [facility] Internal Med [address] [facility], [place] [address] 06/29/2023 10:59:31 06/29/2023 12:07:50 Ulcerative colitis 40314675 K51.90 follows GI-Dr. Shaw Billings infusions Prediabetes 486312588 R7 3.03 he did not start the metformin Diet and exercise recommenda tions discussedh e needs to avoid fast foods and processed foods. Focus on lean meats, fresh vegetables , fresh fruits, whole grains. Recommend 150 g of carbohydra te per day split across all meals. He needs to avoid sugared beverages. Recommend diet soda or flavored fruit drinks such as Crystal Light that are sugar free. Recommend 30 minutes of exercise most days of the week. Is not a candidate for GLP-1 agonist therapy due to personal hx of pancreatit is Insulin resistance 57736 5000 E88.81 as above Vitamin D deficiency 347 75192 E55.9 on supplement Asthma 893677985 J45.90 9 on albuterol p.r.n. Nicotine d ependence with current use 234045105 F17.200 3 minutes spent with patient discussing risks, cessation options. Patient encouraged to quit. On Wellbutrin Call office if any change in mood or behavior Gastroesop hageal reflux disease without esophagitis 186751559 K21.9 on omeprazole -he is aware of side effects, risks, benefitsli festyle measures discussed Syncope 260538856 R55 Carotid Doppler was less than 50% stenosis bilaterall Alison had CT scheduled for todayGet appointmen t with Cardiology - encouraged , his partner states she will call and make apptTo ER if any further episodes occur Hyperlipidemia 34206615 E78.5 Mild, no medsWorkin g on lifestyle measures Finding of body mass index 466293571 E66.3 recommend healthy, well balanced mealsfocus on lean meats, fresh vegetables , fresh fruits, whole grainsredu ce fast/proce ssed foods or eating out to no more than 1-2 times per weekaim to get 30 min of exercise most days of the week- walking is a great choicealso recommend resistance training 2-3 times per week Anxiety 35556728 F41.9 Support provided to patient todayOn Wellbutrin as above, lexapro- he is aware of side effects, risks, benefitsCa ll office if any change in mood or behaviorHe declined psychiatry and/or counseling referral today [id number] NEAL Salinas-Mandy [facility] Internal Med [address] [facility], [address] [place] [address] 10/01/2023 10:21:35 10/01/2023 10:46:14 Ulcerative colitis 86780893 K51.90 follows GI-Dr. Shaw Billings infusions Prediabetes 682350330 R7 3.03 he did not start the metformin Diet and exercise recommenda tions discussedh e needs to avoid fast foods and processed foods. Focus on lean meats, fresh vegetables , fresh fruits, whole grains. Recommend 150 g of carbohydra te per day split across all meals. He needs to avoid sugared beverages. Recommend diet soda or flavored fruit drinks such as Crystal Light that are sugar free. Recommend 30 minutes of exercise most days of the week. Is not a candidate for GLP-1 agonist therapy due to personal hx of pancreatit is Insulin resistance 32861 5000 E88.819 as above Vitamin D deficiency 347 11977 E55.9 on supplement Asthma 485855559 J45.90 9 on albuterol p.r.n. Nicotine d ependence with current use 827986687 F17.200 3 minutes spent with patient discussing risks, cessation options. Patient encouraged to quit. On Wellbutrin Call office if any change in mood or behavior Gastroesop hageal reflux disease without esophagitis 224002740 K21.9 on omeprazole -he is aware of side effects, risks, benefitsli festyle measures discussed Syncope 733147917 R55 Carotid Doppler was less than 50% stenosis bilaterall ys/p head CTnow following cardiology - Dr. Kim- testing was okTo ER if any further episodes occur Hyperlipidemia 31451561 E78.5 Mild, no medsWorkin g on lifestyle measures Finding of body mass index 413923625 E66.3 recommend healthy, well balanced mealsfocus on lean meats, fresh vegetables , fresh fruits, whole grainsredu ce fast/proce ssed foods or eating out to no more than 1-2 times per weekaim to get 30 min of exercise most days of the week- walking is a great choicealso recommend resistance training 2-3 times per week Anxiety 76942679 F41.9 He self stopped the lexapro due to side effects (fatigue)O n Wellbutrin - he is aware of side effects, risks, benefitsCa ll office if any change in mood or behaviorHe declined psychiatry and/or counseling referral today Administra tion of influenza vaccine 22208896 Z23 [id number] Selma austin MD [facility] Internal Med [address] [facility], [facility] [address] [place] [address] 02/26/2024 14:49:30 02/26/2024 16:03:40 Screening - NAD 351298891 Z13.9 Asthma 435967193 J45.90 9 On albuterol, renewed 02/26/2024 Does well Hyperlipidemia 18275176 E78.5 Not on any medsGet labs Anxiety 61356493 F41.9 On bupropion XL 300mg daily, does well renewed 02/26/2024 Not suicidal or homicidalD eclines any referral to psychiatry Smoker 04142697 F17.200 Advised to quit!US AAA at age 66 years Gastroesop hageal reflux disease without esophagitis 102823626 K21.9 On omeprazole 40mg daily, renewed 02/26/2024 Should get an EGD done Ulcerative colitis [address] Squires balsalazid e 750mg tidOn prednisone 5mg Syncope 638536471 R[address] Kim Serum damian min B12 below reference range 869431730 R79.89 Vitamin D deficiency 347 44752 E55.9 [id number] Selma austin MD [facility] Internal Med [facility] [address] [address] 06/03/2024 14:52:41 06/03/2024 15:47:48 Screening - NAD 547370044 Z13.9 Get yearly flu shotGet Tdap if not doneCan do COVID 19 vaccine and its boosters Asthma 599660667 J45.90 9 On albuterol, renewed 02/26/2024 Does well Hyperlipidemia 63997026 E78.5 Not on any medsGet labs Anxiety 94475364 F41.9 On bupropion XL 300mg daily, does well renewed 02/26/2024 Not suicidal or homicidalD eclines any referral to psychiatry Smoker 53477602 F17.200 Advised to quit!US AAA at age 66 years Gastroesop hageal reflux disease without esophagitis 908098742 K21.9 On omeprazole 40mg daily, renewed 02/26/2024 Should get an EGD done Ulcerative colitis [address] Shaw guan 750mg tidOn prednisone 5mg Jacqueline Love NP 05/01/2024 , to get C-scope and check fecal calprotect in, on inflectra infusions every 8 weeks Syncope 385837131 R[address] Kim Serum damian min B12 below reference range 992632527 R79.89 Vitamin D deficiency 347 44066 E55.9 [id number] Selma austin MD [facility] Internal Med [facility] [address] [address] 10/07/2024 11:26:29 10/07/2024 12:09:18 Screening - NAD 906775355 Z13.9 Get yearly flu shotGet Tdap if not doneCan do COVID 19 vaccine and its boosters Asthma 397466834 J45.90 9 On albuterol, renewed 02/26/2024 Does well Hyperlipidemia 63475074 E78.5 Not on any medsGet labs Anxiety 95570170 F41.9 On bupropion XL 300mg daily, does well renewed 02/26/2024 , renewed 08/21/2024 Not suicidal or homicidalD eclines any referral to psychiatry Smoker 67892160 F17.200 Advised to quit!US AAA at age 66 years Gastroesop hageal reflux disease without esophagitis 837476843 K21.9 On omeprazole 40mg daily, take as needed, renewed 02/26/2024 Should get an EGD done, referred again 10/07/2024 Ulcerative colitis [address] Shaw monrealid e 750mg tidOn prednisone 5mg Esfridaer Kate HOSPICE CARE TRANSITIONS COORDINATOR 05/01/2024 , to get C-scope and check fecal calprotect in, on inflectra infusions every 8 weeks 05/06/2024 Calprotect in 1150HOn Rinvoq as per his med list, [place], Maylin Syncope 133784897 R[address] Kim Serum damian min B12 below reference range 461961366 R79.89 Vitamin D deficiency 347 81919 E55.9 Administra tion of influenza vaccine 14815146 Z23 [id number] Selma austin MD [facility] Internal Med [facility] [address] [facility], [facility] [address] [place] [address] 12/02/2024 15:59:08 12/02/2024 16:58:33 Screening - NAD 165697620 Z13.9 Get yearly flu shotGet Tdap if not doneCan do COVID 19 vaccine and its boosters RTC in 4 months, do labs, ER if worse, he did verbalize his understand ing of the above Asthma 064842424 J45.90 9 On albuterolD oes well Hyperlipidemia 29041341 E78.5 Not on any medsGet labs Anxiety 60589754 F41.9 On bupropion XL 300mg daily, does well renewed 02/26/2024 , renewed 08/21/2024 Not suicidal or homicidalD eclines any referral to psychiatry Smoker 83851095 F17.200 Advised to quit!US AAA at age 66 years Gastroesop hageal reflux disease without esophagitis 790703479 K21.9 On omeprazole 40mg daily, take as needed, renewed 02/26/2024 Should get an EGD done, referred again 10/07/2024 Ulcerative colitis [address] Shaw guan 750mg tidOn prednisone 5mg Jacqueline Love NP 05/01/2024 , to get C-scope and check fecal calprotect in, on inflectra infusions every 8 weeks 05/06/2024 Calprotect in José MiguelHOjodi Messina as per his med list, Maylin Banks Syncope 051303173 R[address] Kim, [facility] Serum damian min B12 below reference range 882108815 R79.89 Vitamin D deficiency 347 63310 E55.9 Health Concerns Section Related Observation LastModified by Organization Detai ls LastModified Time None Recorded Concern Status LastModified by Organization Details LastModified Time None Recorded Advance Directives Directive None Recorded Payers Encounter Date Sequence Insurance Name Policy Number Policy Holguin Covered Member ID Holguin Member ID Guarantor Name 10/01/2023 1 [facility]) [id number] 0003 Michael Austin Hancock [id number] Parth Austin Bib 02/26/2024 1 [facility]) [id number] 0003 Michael A Bib [id number] Parth A Bib 06/03/2024 1 [facility]) [id number] 0003 Michael A Bib [id number] Parth A Bib 10/07/2024 1 [facility]) [id number] 0003 Michael A Bib [id number] Parth A Bib 12/02/2024 1 [facility]) [id number] 0003 Michael A Bib [id number] Parth A Bib Notes Date Note Type Note Provider Name and Address Organization Details Recorded Time 10/01/2023 text/html Parth presents today for follow-up. He reports that he is having some fatigue on the Lexapro so he stopped that. He is still taking the Wellbutrin. He feels like his mood is well controlled on just the Wellbutrin. He feels like this is a good dose for him. He denies any SI or HI today. He is still smoking. Is not interested in cessation at this time. Continues to follow with GI for the ulcerative colitis. They also have him on an iron supplement in addition to his UC meds. He has not had any further episodes of syncope or presyncope since I last saw him and since he had his cardiology workup. He has a new baby coming in a few weeks. He would like to get a flu vaccine today. He is due for labs. NEAL Salinas-C [address], [address], [place], [address], [employer] [facility] 10/01/2023 11:12:33 02/26/2024 text/html OV 02/26/2024:He re to establish care Present hx:AsthmaHLDGERGLENDA AnxietySmoker Here to discuss above, and get labs, also would like to get his medications refilled, is doing very well Selma Lau MD [address], [address], [place], [address], [employer] [facility] 02/26/2024 16:20:30 06/03/2024 text/html OV 02/26/2024:He re to establish care Present hx:AsthmaHLDGERGLENDA AnxietySmoker Here to discuss above, and get labs, also would like to get his medications refilled, is doing very well Ov 06/03/2023: Here for his f/u apt, he is doing well today, he is here with his Georgia Lau MD [address], [address], [place], [address], [employer] [facility] 06/04/2024 18:24:05 10/07/2024 text/html OV 02/26/2024:He re to establish care Present hx:AsthmaHLDGERGLENDA AnxietySmoker Here to discuss above, and get labs, also would like to get his medications refilled, is doing very well Ov 06/03/2023: Here for his f/u apt, he is doing well today, he is here with his Georgia OV 10/07/2024: Here for his f/u apt, he is doing well today Selma Lau MD [address], [address], [place], [address], [place] [facility] 10/10/2024 21:17:10 12/02/2024 text/html OV 02/26/2024:He re to establish care Present hx:AsthmaHLDGERDUC AnxietySmoker Here to discuss above, and get labs, also would like to get his medications refilled, is doing very well Ov 06/03/2023: Here for his f/u apt, he is doing well today, he is here with his Georgia OV 10/07/2024: Here for his f/u apt, he is doing well today OV 12/02/2204: Here for his f/u apt, he feels well today, no new labs, he does see his GI Maylin Lau MD [address] [facility], [facility] [address], [place], [address], [facility] [employer] [facility] 12/02/2024 16:58:51
[2024-12-04 12:47] LABS: Hematocrit 37.7 % (42.0-52.0); Hemoglobin 11.8 g/dL (14.0-18.0); Mean Corpuscular HGB Conc 31.3 g/dl (32-36); Mean Corpuscular Hemoglobin 27.5 pg (26-34); Mean Corpuscular Volume 87.9 fl (80-100); Mean Platelet Volume 10.3 fl (7.4-10.4); Platelet Count Result 285 k/mm3 (150-375); Red Blood Count 4.29 M/mm3 (4.6-6.20); White Blood Count 6.1 K/mm3 (4.5-10.0)
[2024-12-04 12:59] LABS: Iron 56 ug/dL (49-181)
[2024-12-04 13:01] LABS: Alanine Aminotransferase 25 U/L (6-50); Albumin Level 4.5 g/dL (3.5-5.1); Alkaline Phosphatase 59 U/L (38-126); Anion Gap 10 mmol/L (4-12); Aspartate Amino Transferase 32 U/L (17-59); Bilirubin,Total 0.6 mg/dL (0.2-1.3); Blood Urea Nitrogen 14 mg/dL (9-20); CRP 1.1 mg/dL (<1.0); Calcium 9.3 mg/dL (8.4-10.2); Carbon Dioxide 28 mmol/L (22-30); Chloride 105 mmol/L (98-107); Cholesterol 192 mg/dL (0-200); Estimated Glomerular Filt Rate > 60; Glucose 106 mg/dL (65-110); HDL Direct 42 mg/dL; Potassium 3.8 mmol/L (3.4-5.0); Sodium 143 mmol/L (137-145); Triglycerides 137 mg/dL (<150)
[2024-12-04 13:09] LABS: Percent Iron Saturation 13 % (20-50)
[2024-12-04 13:10] LABS: LDL Cholesterol Direct 120 mg/dL
[2024-12-12 03:28] LABS: Calprotectin, Stool 351 mcg/g
== END 2024-12-04 12:27 | disposition home or self-care (01) ==
PROVIDERS: PCP Internal Medicine; Visit Provider Nurse Practitioner Family
DX: K51.90 Ulcerative colitis, unspecified, without complications (principal); E61.1 Iron deficiency
CPT/HCPCS: 36415; 80053; 80061; 82728; 83540; 83550; 83630; 83993; 85027; 86140

== ENCOUNTER 2025-06-09 09:03 | Outpatient (CLI) | payer OTHER, SELFPAY ==
--- OUTSIDE RECORDS SUMMARY | 2025-06-09 09:26 | XMS_ITS | Clinical Summary ---
Author Organization [facility] Address [address] [place] [address] Care Team Providers Care Veterinary Technologist Name Role Phone None, Physician Primary Care Provider Unavailabl e Source Comments [facility],non-owned Affiliates and Associated Physician Practices is amultiple site organization consisting of ambulatory clinics and hospital sitesin [place], [place], [place] and [place]. This disclosure is being madepursuant to the Care Everywhere program and may not contain all information available regarding this patient. Last updated 18.[employer] [facility] Allergies No known active allergies Medications * Be aware that medications may not be up to date on this document. Alwaysverify current medications with the patient. 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 Gender Identity Not on file Sexual Orientation [...] VACCINE (1 of 2 - PCV) 2005 HPV VACCINE (1 - 3-dose SCDM series) 2013 COVID-19 VACCINE (1 - 2023-2 5 season) 2024 DEPRESSION SCREENING 10/22/2024 INFLUENZA VACCINE (#1) 2025 3, 09/21/2022 ZOSTER VACCINE (1 of 2) 2036 HIB VACCINE Aged Out No longer eligi ble based on patient's age to complete this topic MENINGOCOCCAL (Group B) VACCINE SHARED DECISION-MAKING Aged Out No longer eligible based on patient's age to complete this topic MENINGOCOCCAL GROUPS A/C/Y/W VACCINE Aged Out No longer eligible b ased on patient's age to complete this topic Insurance [facility] Care Teams Veterinary Technologist Relationship Specialty Start Date End Date None, Physician [address] [place] [address] PCP - General 06/07/23
--- OUTSIDE RECORDS SUMMARY | 2025-06-09 09:26 | XMS_ITS | Clinical Summary ---
Author Organization [facility] Address [address] [place], [place] [address] Phone Care Team Providers Care Agronomy Teacher Name Role Phone Unavailable Primary Care Provider Unavailabl e Allergies No known active allergies Medications albuterol HFA 90 mcg inhaler Take 1 Puff by inhalation every 6 hours as needed for Shortness of Breath or Wheezing. 6.7 Gram 9 Active Active Problems Problem Noted Date Diagnosed Date Tobacco use 08/22/2016 Family History Medical History Relation Name Comments Healthy Father Relation Name Status Comments Father Alive Mother Social History Tobacco Use Types Packs/Day Years Used Date Smoking Tobacco: Every Day Cigarettes Smokeless Tobacco: Never Alcohol Use Standard Drinks/Week Comments Yes 0 (1 standard drink = 0.6 oz pur e alcohol) Sex and Gender Information Value Date Recorded Sex Assigned at Not on file Legal Sex Male 1:00 PM CDT Gender Identity Not on file Sexual Orientation Not on file Last Filed Vital Signs Vital Sign Reading Time Taken Comments Blood Pressure 110/69 06/30/2019 10:00 AM CDT Pulse 93 06/30/2019 10:00 AM CDT Temperature 36.9 C (98.5 F) 06/30/2019 10:00 AM CDT Respiratory Rate 20 06/30/2019 10:00 AM CDT Oxygen Saturation 97% 06/30/2019 10:00 AM CDT Inhaled Oxygen Concentration - - Weight 99.8 kg (220 lb) 06/30/2019 10:00 AM CDT Height 182.9 cm (6') 06/30/2019 10:00 AM CDT Body Mass Index 29.84 06/30/2019 10:00 AM CDT Plan of Treatment Health Maintenance Due Date Last Done Comments HPV VACCINES (1 - Male 3-dose series) 2001 DTAP/TDAP/TD VACCINES (1 - Tdap) 2005 HEPATITIS B VACCINES (1 of 3 - 19+ 3-dose series) 07/23 INFLUENZA VACCINE (#1) 2025 Insurance OPTIONS PPO [id number]
--- OUTSIDE RECORDS SUMMARY | 2025-06-09 09:26 | XMS_ITS | Clinical Summary ---
Author Organization [facility] Address [facility] [place] [address] Care Team Providers Care Investments Manager Name Role Phone Selma Lau MD Primary Care Provider Encounters Date Type Department Care Team Description 06/02/2025 Telephone [facility] [facility], [place] [address] [place] [address] Sailaja Jacobsen, RMA Consult 04/22/2025 Telephone [facility] [facility], [place] [address] [place] [address] Sailaja Jacobsen RMA Consult 04/14/2025 Telephone [facility] [facility], [facility] [address] [place] [address] Sailaja Jacobsen, RMA Consult from Last 3 Months Social History Tobacco Use Types Packs/Day Years Used Date Smoking Tobacco: Never Assessed Sex and Gender Information Value Date Recorded Sex Assigned at Not on file 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 Gender Identity Not on file Sexual Orientation Not on file Plan of Treatment Health Maintenance Due Date Last Done Comments Annual Physical 1989 Hepatitis C 2004 DTaP, Tdap and Td Vaccines ( 1 - Tdap) 2005 Hepatitis B Vaccines (1 of 3 - 19+ 3-dose series) 2005 HPV Vaccines (1 - 3-dose SCD M series) 2013 COVID-19 Vaccine (2023-2 5 season) 2024 Meningococcal B Vaccine Aged Out No l onger eligible based on patient's age to complete this topic Meningococcal Vaccine Aged Out No brittney tova eligible based on patient's age to complete this topic Pneumococcal Vaccine: Pediat rics (0 to 5 Years) and At-Risk Patients (6 to 49 Years) Aged Out No longer eligible b ased on patient's age to complete this topic RSV Immunizations Under 20 Months Aged Out No longer eligible based on patient's age to complete this topic [place] [address] [address] Care Teams Investments Manager Relationship Specialty Start Date End Date Selma Lau MD [address] [facility] [address] [place] [address] PCP - General INTERNAL MEDICINE 12/05/24
[2025-06-09 10:06] LABS: Hematocrit 39.5 % (42.0-52.0); Hemoglobin 12.7 g/dL (14.0-18.0); Immature Granulocyte Percent A 0.3 % (0-0.5); Lymphocytes Absolute Auto 1.20 K/mm3 (0.9-3.2); Mean Corpuscular HGB Conc 32.2 g/dl (32-36); Mean Corpuscular Hemoglobin 28.3 pg (26-34); Mean Corpuscular Volume 88.2 fl (80-100); Nucleated Red Blood Cells Absolute Auto 0.000 K/mm3 (0.0-0.012); Nucleated Red Blood Cells Perc 0.0 % (0.0-0.2); Platelet Count Result 316 k/mm3 (150-375); Red Blood Count 4.48 M/mm3 (4.6-6.20); White Blood Count 6.5 K/mm3 (4.5-10.0)
[2025-06-09 10:37] LABS: Alanine Aminotransferase 61 U/L (6-50); Albumin Level 4.6 g/dL (3.5-5.1); Alkaline Phosphatase 76 U/L (38-126); Anion Gap 8 mmol/L (4-12); Aspartate Amino Transferase 51 U/L (17-59); Bilirubin,Total 0.5 mg/dL (0.2-1.3); Blood Urea Nitrogen 17 mg/dL (9-20); CRP < 0.5 mg/dL (<1.0); Calcium 9.1 mg/dL (8.4-10.2); Carbon Dioxide 23 mmol/L (22-30); Chloride 107 mmol/L (98-107); Estimated Glomerular Filt Rate > 60; Glucose 103 mg/dL (65-110); Potassium 4.1 mmol/L (3.4-5.0); Sodium 138 mmol/L (137-145); Total Protein 7.6 g/dL (6.3-8.2)
[2025-06-09 10:38] LABS: Iron 95 ug/dL (49-181)
[2025-06-09 10:52] LABS: Percent Iron Saturation 22 % (20-50)
[2025-06-09 11:19] LABS: Ferritin 9.04 ng/mL (17.9-464)
[2025-06-11 07:09] LABS: Calprotectin, Fecal 269 ug/g (0-120)
== END 2025-06-09 09:04 | disposition home or self-care (01) ==
PROVIDERS: Nurse Practitioner Family; PCP Internal Medicine; Visit Provider Nurse Practitioner
DX: K51.80 Other ulcerative colitis without complications (principal)
CPT/HCPCS: 36415; 80053; 82728; 83540; 83550; 83993; 85025; 85652; 86140

== ENCOUNTER 2025-07-03 02:58 | Day surgery (SDC) | payer OTHER, SELFPAY ==
[2025-06-19 11:11] VITALS: BMI 32.5
--- OUTSIDE RECORDS SUMMARY | 2025-07-03 03:00 | XMS_ITS | Clinical Summary ---
Author Organization [facility] Address [facility] [place] [address] Care Team Providers Care Systems Mgr Name Role Phone Selma Lau MD Primary Care Provider Encounters Date Type Department Care Team Description 06/02/2025 Telephone [facility] [address] [facility], [place] [address] [place] [address] Sailaja Jacobsen, RMA Consult 04/22/2025 Telephone [facility] [address] [facility], [place] [address] [place] [address] Sailaja Jacobsen RMA Consult 04/14/2025 Telephone [facility] [facility], [facility] [address] [place] [address] Sailaja Jacobsen, RMA Consult from Last 3 Months Social History Tobacco Use Types Packs/Day Years Used Date Smoking Tobacco: Never Assessed Sex and Gender Information Value Date Recorded Sex Assigned at Not on file 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 Gender Identity Not on file Sexual Orientation Not on file Plan of Treatment Health Maintenance Due Date Last Done Comments Annual Physical 1989 Hepatitis C 2004 DTaP, Tdap and Td Vaccines ( 1 - Tdap) 2005 Hepatitis B Vaccines (1 of 3 - 19+ 3-dose series) 2005 HPV Vaccines (1 - 3-dose SCD M series) 2013 COVID-19 Vaccine (2023-2 5 season) 2025 Meningococcal B Vaccine Aged Out No l [...] patient's age to complete this topic [place] [address] [place] [address] Care Teams Systems Mgr Relationship Specialty Start Date End Date Selma Lau MD [address] [facility] [address] [place] [address] PCP - General INTERNAL MEDICINE 12/05/24
--- OUTSIDE RECORDS SUMMARY | 2025-07-03 03:00 | XMS_ITS | Clinical Summary ---
Author Organization [facility] Address [address] [place] [address] Care Team Providers Care Vaccines Solutions Specialist Name Role Phone None, Physician Primary Care Provider Unavailabl e Source Comments [facility],non-owned Affiliates and Associated Physician Practices is amultiple site organization consisting of ambulatory clinics and hospital sitesin [place], [place], [place] and [place]. This disclosure is being madepursuant to the Care Everywhere program and may not contain all information available regarding this patient. Last updated 18.[facility] Allergies No known active allergies Medications * [...] on file Legal Sex Male 5:33 AM [employer] Gender Identity Not on file Sexual Orientation [...] VACCINE (1 - 3-dose SCDM series) 2013 DEPRESSION SCREENING 10/22/2024 COVID-19 VACCINE (1 - 2023-2 5 season) 2025 INFLUENZA VACCINE (#1) 2025 3, 09/21/2022 [place] [...] patient's age to complete this topic Insurance [facility] [address] Care Teams Vaccines Solutions Specialist Relationship Specialty Start Date End Date None, Physician [address] [place] [address] PCP - General 06/07/23
[2025-07-03 13:02] VITALS: BP 132/86; PULSE 87; RESP 18; TEMP 36.4; O2SAT 98
[2025-07-03] MEDS: LACTATED RINGERS 1,000 ML 150 ML IV CONT (13:14)
--- NOTE | 2025-07-03 13:36 | P.PNAN_ITS ---
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 Patient Data Age: 39 Gender: M Height: 1.83 m Weight: 107.4 kg Last Vital Signs Temp 36.4 C L 07/03/25 13:02 Pulse 87 07/03/25 13:02 Resp 18 07/03/25 13:02 BP 132/86 07/03/25 13:02 Pulse Ox 98 07/03/25 13:02 O2 Del Method Room Air 07/03/25 13:02 Allergies Allergy/AdvReac Type Severity Reaction Status Date / Time No Known Allergies Allergy Verified 07/03/25 13:00 Home Medications ?Medication ?Instructions ?Recorded ?Confirmed ?Type upadacitinib 30 mg tablet,extended 30 mg PO DAILY 3 mo nt #90 tabs 09/10/24 07/03/25 Rx release 24 hr (Rinvoq) bupropion HCl 300 mg 24 hr tablet, 300 mg PO QAM 06/0907/03/25 History extended release omeprazole 40 mg capsule,delayed 40 mg PO DAILY 07/03/25 History release ferrous sulfate 325 mg (65 mg 325 mg PO DAILY 1 month #30 tabs 06/10/25 07/03/25 Rx iron) tablet Held on 07/03/25. Instructions: has not started it Patient hx anesthesia problems: none Family hx anesthesia problems: none Results Review: All pre-operative results and documents have been reviewed as part of the pre- operative evaluation. [facility] Past Medical History Medical History Obese SPRING (iron deficiency anemia) Elevated C-reactive protein (CRP) Long-term use of high-risk medication Iron deficiency Tobacco abuse Bloody stools Diarrhea Ulcerative colitis Asthma Social History Social History Smoking packs per day: 1 Smoking cigarettes per day: 20.0 Years smoked: 23 Smoking pack-years: 23.00 Smoking status: Current every day smoker Tobacco type: cigarettes Alcohol intake: current Alcohol use details: occasional use Substance use: never Substance use type: does not use Last use: 07/2021 Living arrangements: with family Spiritual care concerns: No Anes - Eval Final PreProcedure Day of Procedure 07/03/25 13:36 Patient weight: obese Heart: regular rate and rhythm Lungs: clear to auscultation Airway: Mallampati scale class II Neurological: alert and oriented Last oral intake: >/= 8 hours ASA classification: III Emergent: no Anesthetic plan: proceed Anesthesia type and monitoring: general GIVS and standard monitoring Results Review: All pre-operative results and documents have been reviewed as part of the pre- operative evaluation. Informed Consent: The patient's anesthetic plan and its attendant risks and benefits were discussed with the patient/family/POA. Questions were solicited and answers provided to the satisfaction of the patient/family/POA.
--- NOTE | 2025-07-03 13:52 | P.HP_ITS ---
H&P: HPI History of Present Illness Date/Time: 07/03/25 13:52 Chief Complaint: Twelve year history of ulcerative colitis. Narrative: This patient has a history of severe ulcerative colitis and the last colonos copy was in 2021, showing severe ulceration and inflammation. He has failed mesalamine and infliximab, and is now under clinical remission with Rinvoq. he is referred today for follow-up colonoscopy. Review of Systems Review of Systems: All systems reviewed & are unremarkable except as noted in HPI and below PMFSH Past Medical History Medical History Obese SPRING (iron deficiency anemia) Elevated C-reactive protein (CRP) Long-term use of high-risk medication Iron deficiency Tobacco abuse Bloody stools Diarrhea Ulcerative colitis Asthma Social History Social History Smoking packs per day: 1 Smoking cigarettes per day: 20.0 Years smoked: 23 Smoking pack-years: 23.00 Smoking status: Current every day smoker Tobacco type: cigarettes Alcohol intake: current Alcohol use details: occasional use Substance use: never Substance use type: does not use Last use: 07/2021 Living arrangements: with family Spiritual care concerns: No Meds Home Medications and Allergies Home Medications ?Medication ?Instructions ?Recorded ?Confirmed ?Type upadacitinib 30 mg tablet,extended 30 mg PO DAILY 3 mo [facility] #90 tabs 09/10/24 07/03/25 Rx release 24 hr (Rinvoq) bupropion HCl 300 mg 24 hr tablet, 300 mg PO QAM 06/0907/03/25 History extended release omeprazole 40 mg capsule,delayed 40 mg PO DAILY 07/03/25 History release ferrous sulfate 325 mg (65 mg 325 mg PO DAILY 1 month #30 tabs 06/10/25 07/03/25 Rx iron) tablet Held on 07/03/25. Instructions: has not started it Allergies Allergy/AdvReac Type Severity Reaction Status Date / Time No Known Allergies Allergy Verified 07/03/25 13:00 Vital Signs Vital Signs - 24 hr 07/03/25 13:02 Temperature 97.5 F L Pulse Rate 87 Respiratory Rate 18 Blood Pressure 132/86 Pulse Oximetry 98 Oxygen Delivery Room Air Exam Const: General: cooperative and healthy appearing Resp: Effort & Inspection: normal respiratory effort and able to speak in complete sentences Auscultation: clear to auscultation bilaterally Cardio: Rate: regular rate Rhythm: regular rhythm GI: Inspection: normal to inspection GI Palp: No No hepatosplenomegaly present Auscultation: normal bowel sounds Rectal Exam: deferred Skin: General skin exam: normal color Psych: Appearance: grossly normal Mental Status: mental status grossly normal Assessment and Plan Assessment and plan (1) Ulcerative colitis: Qualifiers: Ulcerative colitis location: other ulcerative colitis Digestive disease complication type: without complication Qualified Code(s): K51.80 - Other ulcerative colitis without complications Code(s): K51.90 - Ulcerative colitis, unspecified, without complications Status: Acute Assessment and Plan: The patient is deemed a good candidate for the procedure. Consent signed. Will proceed.
[2025-07-03] MEDS: SIMETHICONE ORAL SUSPENSION 20 MG/0.3 ML 30 ML BOTTLE 0.6 ML IRRIGATION (13:59)
--- NOTE | 2025-07-03 14:10 | S_PTH ---
PATIENT: Parth Mccartney LOC: [facility] U#:[id number] AGE/SX: 39/M ROOM: RE07/03/[address]: Ricardo Patel MD : 1985 BED: DIS: 07/03/2025 SPEC #: [id number] RECD: 07/06/25 07:44 STATUS: DECLAN MELVIN #: [id number] JENNIE: 07/03/25 14:[address]: Ricardo Patel DEPT: [facility] Surgical RECD BY: Laure Miranda ENTERED: 07/06/25 07:45 SP TYPE: Surgical OTHR DR: Selma LauMD Tissues: A - Colon Biopsy B - Colon Biopsy C - Colon Biopsy Procedures: Hematoxylin and Eosin Stain Gross and Microscopic Level 4
[2025-07-03 14:13] VITALS: BP 121/71; PULSE 74; RESP 18; O2SAT 100
[2025-07-03 14:23] VITALS: BP 121/79; PULSE 82; RESP 20; O2SAT 100
[2025-07-03 14:33] VITALS: BP 124/82; PULSE 76; RESP 20; O2SAT 100
== END 2025-07-03 14:49 | disposition home or self-care (01) ==
PROVIDERS: PCP Internal Medicine; Referring Provider Nurse Practitioner Family; Visit Provider Internal Medicine Gastroenterology
PROC: 0DJD8ZZ Inspection of Lower Intestinal Tract, Via Natural or Artificial Opening Endoscopic (ICD-10-PCS; CPT 45378; principal; 2025-07-03 14:15)
DX: Z09 Encounter for follow-up examination after completed treatment for conditions other than malignant neoplasm (principal); K51.80 Other ulcerative colitis without complications; K51.40 Inflammatory polyps of colon without complications; D50.9 Iron deficiency anemia, unspecified; J45.909 Unspecified asthma, uncomplicated; R79.82 Elevated C-reactive protein (CRP); F17.210 Nicotine dependence, cigarettes, uncomplicated; E66.9 Obesity, unspecified; Z68.32 Body mass index [BMI] 32.0-32.9, adult; Z79.899 Other long term (current) drug therapy; Z87.19 Personal history of other diseases of the digestive system
CPT/HCPCS: 45380; 88305; J2003; J2704; J7120